=== PATIENT | male | born 1970 | race Caucasian/White ===

== ENCOUNTER 2019-08-17 12:51 | Inpatient (IN) | payer OTHER ==
--- NOTE | 2019-08-17 14:16 | BHS.RME ---
Substance Use & Tx History - Substance Use History Alcohol Substance amount: 1 liter Vodka Frequency of use: Daily Substance route: Oral Date of Last Use: 08/16/19 PCP Substance amount: 1 bag Frequency of use: Daily Substance route: Smoking Date of Last Use: 08/15/19 Physical/Psych/Mental Status - Behavior General Behavior: Increased activity (restlessness, agitation) Eye Contact: Normal - Cooperativeness Cooperativeness: Cooperative - Thinking Thought Processes: Tight Thought content: Future oriented - Physical Health Problems Is patient presently having any pain?: No (chronic neck pain) Does patient presently have any injuries (include location): No Does patient currently have a fever: No Is patient : No CIWA Nausea/Vomitin-No Nausea/No Vomiting Muscle Tremors: 3 Anxiety: 2 Agitation: 1-Slight > Activity Paroxysmal Sweats: No Perspiration Orientation: 3-Disoriented Date>2 days Tacttile Disturbances: 0-None Auditory Disturbances: 0-None Visual Disturbances: 0-None Headache: 3-Moderate CIWA-Ar Total Score: 12
--- NOTE | 2019-08-17 15:54 | HP ---
CIWA Score Nausea/Vomitin-No Nausea/No Vomiting Muscle Tremors: 3 Anxiety: 2 Agitation: 1-Slight > Activity Paroxysmal Sweats: No Perspiration Orientation: 3-Disoriented Date>2 days Tacttile Disturbances: 0-None Auditory Disturbances: 0-None Visual Disturbances: 0-None Headache: 3-Moderate CIWA-Ar Total Score: 12 - Admission Criteria OASAS Guidelines: Admission for Medically Managed Detox: Requires at least one of the followin. CIWA greater than 12 2. Seizures within the past 24 hours 3. Delirium tremens within the past 24 hours 4. Hallucinations within the past 24 hours 5. Acute intervention needed for co occurring medical disorder 6. Acute intervention needed for co occurring psychiatric disorder 7. Severe withdrawal that cannot be handled at a lower level of care (continued vomiting, continued diarrhea, abnormal vital signs) requiring intravenous medication and/or fluids 8. Admitting History and Physical - Admission Chief Complaint: "I want to be here because I started drinking so much and feel depressed and I tried to drown my emotions out." History of Present Illness: 49 year old male with history alcohol dependence with withdrawals, pcp use disorder, oral opioid use disorder. Alcohol: 1 liter of [place] or vodka daily, last used yesterday, started age 18 No history of seizures or blackout. 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 He qualifies for acute detox. History Source: Patient Limitations to Obtaining History: No Limitations - Past Medical History AS400 ANALYST: Yes: Other (Valdez's palsy) Musculoskeletal: Yes: Other (Varicose veins) - Past Surgical History Additional Past Surgical History: cervical disc surgery - Smoking History Smoking history: Current every day smoker Have you smoked in the past 12 months: Yes Aproximately how many cigarettes per day: 10 - Alcohol/Substance Use Hx Alcohol Use: Yes Date of Last Use: 08/16/19 - Social History Usual Living Arrangement: Yes: Alone Do you think of yourself as: Straight/Heterosexual ADL: Independent 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 History of Recent Travel: No Patient History - PPD History Previous Implant?: Yes Documented Results: Positive w/o proof Implanted On Prior [facility] Admission?: No Results: CXR 3 weeks ago PPD to be Administered?: No - Smoking Cessation Smoking history: Current every day smoker Have you smoked in the past 12 months: Yes Aproximately how many cigarettes per day: 10 Hx Chewing Tobacco Use: No Initiated information on smoking cessation: Yes 'Breaking Loose' booklet given: 08/17/19 - Substances abused Alcohol Substance route: Oral Frequency: Daily Amount used: 1 liter vodka or lul Age of first use: 18 Date of last use: 08/16/19 PCP Substance route: Smoking Frequency: Daily Amount used: 1 bag Age of first use: 30 Date of last use: 08/15/19 Other Other (specify): percocet Substance route: Oral Frequency: Daily Amount used: 10 mg Date of last use: 08/14/19 Admission Physical Exam BHS - Physical General Appearance: Yes: Moderate Distress, Irritable, Anxious HEENTM: Yes: EOMI, Hearing grossly Normal, Normal ENT Inspection, Normocephalic , Normal Voice, Other (residual weakness right side of face) Respiratory: Yes: Normal Breath Sounds, No Respiratory Distress, No Accessory Muscle Use Neck: Yes: No masses,lesions,Nodules, Supple Breast: Yes: Within Normal Limits Cardiology: Yes: Regular Rhythm, Regular Rate, S1, S2 Abdominal: Yes: Normal Bowel Sounds, Non Tender, Flat, Soft Genitourinary: Yes: Within Normal Limits Back: Yes: Normal Inspection Musculoskeletal: Yes: full range of Motion, Gait Steady, Pelvis Stable Extremities: Yes: Normal Capillary Refill, Normal Inspection, Normal Range of Motion, Non-Tender, Other (severe varicose veins bilaterally worse on left leg) Neurological: Yes: first mate II-XII NML intact, Fully Oriented, Alert, Motor Strength 5/5, Normal Mood/Affect, Normal Response Integumentary: Yes: Normal Color, Warm Lymphatic: Yes: Within Normal Limits - Diagnostic (1) Alcohol dependence with withdrawal Current Visit: Yes Status: Acute (2) TMJ (temporomandibular joint disorder) Current Visit: Yes Status: Acute (3) Valdez's palsy Current Visit: Yes Status: Acute (4) Varicose veins of bilateral lower extremities with pain Current Visit: Yes Status: Acute (5) Lumbar disc herniation Current Visit: Yes Status: Acute Cleared for Admission [facility] - Detox or Rehab [facility] Level of Care: Medically Managed Detox Regimen/Protocol: Librium Claeared for Rehab Admission: No Screened but not Admitted - Documentation of Visit Screened but not Admitted: No Inpatient Rehab Admission - Rehab Decision to Admit Inpatient rehab admission?: No
[2019-08-17] MEDS ORDERED: METHOCARBAMOL 500 MG TABLET PO PRN (16:05)
[2019-08-17] MEDS ORDERED: MENTHOL/PHENOL 1 EACH UD MM PRN (16:05)
[2019-08-17] MEDS ORDERED: chlordiazePOXIDE HCL 25 MG CAPSULE PO PRN (16:05)
[2019-08-17] MEDS ORDERED: MAG HYDROX/AL HYDROX/SIMETH 30 ML UNIT-DOSE CUP PO PRN (16:05)
[2019-08-17] MEDS ORDERED: IBUPROFEN 400 MG TABLET (FP) PO PRN (16:05)
[2019-08-17] MEDS ORDERED: ACETAMINOPHEN 325 MG TABLET (FP) PO PRN ×2 (16:05)
[2019-08-17] MEDS ORDERED: MAGNESIUM CITRATE 300 ML BOTTLE PO PRN (16:05)
[2019-08-17] MEDS ORDERED: hydrOXYzine PAMOATE 25 MG CAPSULE (FP) PO PRN (16:05)
[2019-08-17] MEDS ORDERED: BISMUTH SUBSALICYLATE 524 MG/30 ML UD PO PRN (16:05)
[2019-08-17] MEDS ORDERED: MAGNESIUM HYDROX 2400MG/30ML ORAL SUSPENSION 30 ML CUP PO PRN (16:05)
[2019-08-17 16:59] VITALS: BMI 28.5
[2019-08-17] MEDS: NICOTINE 14 MG/24 HOURS TOPICAL PATCH TD SCH (17:50)
[2019-08-17] MEDS: chlordiazePOXIDE HCL 25 MG CAPSULE PO SCH ×2 (17:54→22:15)
[2019-08-17] MEDS ORDERED: GABAPENTIN 100 MG CAPSULE PO ONE (18:30)
[2019-08-17] MEDS: CELECOXIB 200 MG CAPSULE PO SCH (21:03)
[2019-08-17] MEDS: THIAMINE HCL 100 MG TABLET (FP) PO SCH (22:15)
[2019-08-17] MEDS: MELATONIN 5 MG TABLETS PO PRN (22:16)
[2019-08-18] MEDS: chlordiazePOXIDE HCL 25 MG CAPSULE PO SCH ×4 (06:02→22:03)
[2019-08-18 09:48] LABS: HEMATOCRIT 43.1 % (35.4-49); HEMOGLOBIN 14.4 GM/dL (11.7-16.9); MCH 30.4 pg (25.7-33.7); MCHC 33.3 g/dl (32.0-35.9); MEAN CELL VOLUME 91.2 fl (80-96); MEAN PLT VOLUME 9.6 fl (7.5-11.1); PLATELET COUNT 259 K/MM3 (134-434); RBC 4.73 M/mm3 (4.00-5.60); RDW 14.5 % (11.9-15.9); WHITE BLOOD COUNT 3.4 K/mm3 (4.0-10.0)
[2019-08-18] MEDS: PRENATAL VITAMINS W/ FOLIC ACID TABLET (FP) PO SCH (10:05)
[2019-08-18] MEDS: CELECOXIB 200 MG CAPSULE PO SCH (10:05)
[2019-08-18] MEDS: NICOTINE 14 MG/24 HOURS TOPICAL PATCH TD SCH (10:06)
[2019-08-18 10:21] LABS: ALBUMIN 3.3 g/dl (3.4-5.0); BILIRUBIN,TOTAL 0.4 mg/dL (0.2-1); BLOOD UREA NITROGEN 9.7 mg/dL (7-18); CALCIUM 8.8 mg/dL (8.5-10.1); TOT PROT 5.9 g/dl (6.4-8.2)
--- NOTE | 2019-08-18 11:28 | PN ---
S CIWA - CIWA Score Nausea/Vomitin-No Nausea/No Vomiting Muscle Tremors: None Anxiety: 3 Agitation: 0-Normal Activity Paroxysmal Sweats: 3 Orientation: 0-Oriented Tacttile Disturbances: 0-None Auditory Disturbances: 0-None Visual Disturbances: 0-None Headache: 2-Mild CIWA-Ar Total Score: 8 BHS Progress Note (SOAP) Subjective: c/o anxiety, irritability, sweats, and headache. Objective: 08/18/19 11:27 Vital Signs 08/18/19 08/18/19 08/18/19 03:35 07:09 08:56 Temperature 97.5 F L 98.1 F Pulse Rate 61 74 Respiratory 16 16 18 Rate Blood Pressure 113/77 125/81 Laboratory Last Values WBC 3.4 K/mm3 (4.0-10.0) L 08/18/19 07:20 RBC 4.73 M/mm3 (4.00-5.60) 08/18/19 07:20 Hgb 14.4 GM/dL (11.7-16.9) 08/18/19 07:20 Hct 43.1 % (35.4-49) 08/18/19 07:20 MCV 91.2 fl (80-96) 08/18/19 07:20 MCH 30.4 pg (25.7-33.7) 08/18/19 07:20 MCHC 33.3 g/dl (32.0-35.9) 08/18/19 07:20 RDW 14.5 % (11.9-15.9) 08/18/19 07:20 Plt Count 259 K/MM3 (134-434) 08/18/19 07:20 MPV 9.6 fl (7.5-11.1) 08/18/19 07:20 Sodium 142 mmol/L (136-145) 08/18/19 07:20 Potassium 4.0 mmol/L (3.5-5.1) 08/18/19 07:20 Chloride 108 mmol/L (98-107) H 08/18/19 07:20 Carbon Dioxide 29 mmol/L (21-32) 08/18/19 07:20 Anion Gap 6 MMOL/L (8-16) L 08/18/19 07:20 BUN 9.7 mg/dL (7-18) 08/18/19 07:20 Creatinine 1.0 mg/dL (0.55-1.3) 08/18/19 07:20 Est GFR (CKD-EPI)AfAm 101.98 08/18/19 07:20 Est GFR (CKD-EPI)NonAf 87.99 08/18/19 07:20 Random Glucose 101 mg/dL (74-106) 08/18/19 07:20 Calcium 8.8 mg/dL (8.5-10.1) 08/18/19 07:20 Total Bilirubin 0.4 mg/dL (0.2-1) 08/18/19 07:20 AST 12 U/L (15-37) L 08/18/19 07:20 ALT 23 U/L (13-61) 08/18/19 07:20 Alkaline Phosphatase 53 U/L (45-117) 08/18/19 07:20 Total Protein 5.9 g/dl (6.4-8.2) L 08/18/19 07:20 Albumin 3.3 g/dl (3.4-5.0) L 08/18/19 07:20 RPR Titer Nonreactive (NONREACTIVE) 08/18/19 07:20 Labs noted. Assessment: 08/18/19 11:27 AOX3, in no respiratory distress. Full ROM, ambulating in the unit. Withdrawal symptoms. Plan: continue detox. Increase fluids.
--- NOTE | 2019-08-18 12:28 | CONSULT ---
[facility] Psychiatric Consult - Data Date of interview: 08/18/19 Admission source: [facility] Identifying data: First visit to [facility] and admission to [address] [place] [address] for this 49 y/o male self-referred for detoxification treatment. PARVIZ issues : alcohol, opiate (percocet), phencyclidine, cannabis, nicotine. Patient is , a father of one, homeless, unemployed and supported on welfare. Substance Abuse History: Discussed with patient. details in current [facility] report as follows : Smoking history: Current every day smoker. Have you smoked in the past 12 months: Yes. Aproximately how many cigarettes per day: 10. Hx Chewing Tobacco Use: No. Initiated information on smoking cessation: Yes. 'Breaking Loose' booklet given: 08/17/19. - Substances abused. Alcohol. Substance route: Oral. Frequency: Daily. Amount used: 1 liter vodka or lul. Age of first use: 18. Date of last use: 08/16/19. PCP. Substance route: Smoking. Frequency: Daily. Amount used: 1 bag. Age of first use: 30. Date of last use: 08/15/19. Other. Other (specify): percocet. Substance route: Oral. Frequency: Daily. Amount used: 10 mg. Date of last use: 08/14/19 Medical History: Medical profile is remarkable for Valdez's palsy (October 2018), temporomandibular joint disorder, varicose veins, disc herniation (lumbar spine ) and recent history of cervical spine fusion (May 2019). Psychiatric History: Patient denies history of psychiatric hospitalizations. Diagnosed with MDD. Mr Martinez reports no affiliation with psychiatric OPD care providers. He is prescribed gabapentin by a primary care provider for pain management. Patient denies history of suicide attempts.. Physical/Sexual Abuse/Trauma History: Patient denies. Additional Comment: Toxicology not available for review. Mental Status Exam - Mental Status Exam Alert and Oriented to: Time, Place, Person Cognitive Function: Good Patient Appearance: Well Groomed Mood: Nervous, Withdrawn Affect: Mood Congruent, Constricted Patient Behavior: Fatigued, Appropriate, Cooperative Speech Pattern: Clear Voice Loudness: Normal Thought Process: Intact, Goal Oriented Thought Disorder: Not Present Hallucinations: Denies Suicidal Ideation: Denies Homicidal Ideation: Denies Insight/Judgement: Poor Sleep: Poorly, Difficulty falling asleep Appetite: Good Gait/Station: Normal Psychiatric Findings - Problem List ([place] 1, 2,3) (1) Alcohol dependence with withdrawal Current Visit: Yes Status: Acute (2) Phencyclidine dependence Current Visit: Yes Status: Chronic (3) Nicotine dependence Current Visit: Yes Status: Chronic (4) Substance induced mood disorder Current Visit: Yes Status: Chronic (5) Insomnia Current Visit: Yes Status: Acute - Initial Treatment Plan Initial Treatment Plan: Psychoeducation. Sleep hygiene. Detoxification. Insomnia is addressed with melatonin at bedtime. Observation.
[2019-08-18] MEDS: THIAMINE HCL 100 MG TABLET (FP) PO SCH (22:03)
[2019-08-18] MEDS: MELATONIN 5 MG TABLETS PO PRN (22:05)
[2019-08-19] MEDS: chlordiazePOXIDE HCL 25 MG CAPSULE PO SCH ×4 (05:25→22:21)
[2019-08-19] MEDS: PRENATAL VITAMINS W/ FOLIC ACID TABLET (FP) PO SCH (10:11)
[2019-08-19] MEDS: CELECOXIB 200 MG CAPSULE PO SCH (10:11)
[2019-08-19] MEDS: NICOTINE 14 MG/24 HOURS TOPICAL PATCH TD SCH (10:11)
--- NOTE | 2019-08-19 14:00 | PN ---
S CIWA - CIWA Score Nausea/Vomitin-No Nausea/No Vomiting Muscle Tremors: 3 Anxiety: 0-No Anxiety, at Ease Agitation: 0-Normal Activity Paroxysmal Sweats: 1-Minimal Palms Moist Orientation: 0-Oriented Tacttile Disturbances: 0-None Auditory Disturbances: 0-None Visual Disturbances: 0-None Headache: 3-Moderate CIWA-Ar Total Score: 7 BHS Progress Note (SOAP) Subjective: 49 years old male admitted on 08/17/19 for alcohol withdrawal sx management treating with librium detox regiment reports trouble sleep at night belsomra 15 mg po x 1 hs states chronic back and neck pain treated with [employer] [facility] teaching on risks of addiction for opiate based pain medication patient agrees tylenal patient requests to be sen by a psychiatrist that long history of anxiety "some thing to calm me down" Objective: 08/19/19 14:03 Vital Signs Temperature 97.4 F L 08/19/19 10:00 Pulse Rate 71 08/19/19 10:00 Respiratory Rate 18 08/19/19 10:00 Blood Pressure 137/80 08/19/19 10:00 O2 Sat by Pulse Oximetry (%) Laboratory Last Values WBC 3.4 K/mm3 (4.0-10.0) L 08/18/19 07:20 RBC 4.73 M/mm3 (4.00-5.60) 08/18/19 07:20 Hgb 14.4 GM/dL (11.7-16.9) 08/18/19 07:20 Hct 43.1 % (35.4-49) 08/18/19 07:20 MCV 91.2 fl (80-96) 08/18/19 07:20 MCH 30.4 pg (25.7-33.7) 08/18/19 07:20 MCHC 33.3 g/dl (32.0-35.9) 08/18/19 07:20 RDW 14.5 % (11.9-15.9) 08/18/19 07:20 Plt Count 259 K/MM3 (134-434) 08/18/19 07:20 MPV 9.6 fl (7.5-11.1) 08/18/19 07:20 Sodium 142 mmol/L (136-145) 08/18/19 07:20 Potassium 4.0 mmol/L (3.5-5.1) 08/18/19 07:20 Chloride 108 mmol/L (98-107) H 08/18/19 07:20 Carbon Dioxide 29 mmol/L (21-32) 08/18/19 07:20 Anion Gap 6 MMOL/L (8-16) L 08/18/19 07:20 BUN 9.7 mg/dL (7-18) 08/18/19 07:20 Creatinine 1.0 mg/dL (0.55-1.3) 08/18/19 07:20 Est GFR (CKD-EPI)AfAm 101.98 08/18/19 07:20 Est GFR (CKD-EPI)NonAf 87.99 08/18/19 07:20 Random Glucose 101 mg/dL (74-106) 08/18/19 07:20 Calcium 8.8 mg/dL (8.5-10.1) 08/18/19 07:20 Total Bilirubin 0.4 mg/dL (0.2-1) 08/18/19 07:20 AST 12 U/L (15-37) L 08/18/19 07:20 ALT 23 U/L (13-61) 08/18/19 07:20 Alkaline Phosphatase 53 U/L (45-117) 08/18/19 07:20 Total Protein 5.9 g/dl (6.4-8.2) L 08/18/19 07:20 Albumin 3.3 g/dl (3.4-5.0) L 08/18/19 07:20 RPR Titer Nonreactive (NONREACTIVE) 08/18/19 07:20 lab noted Assessment: 08/19/19 14:03 alcohol withdrawal Plan: librium regiment
--- NOTE | 2019-08-19 15:20 | PN ---
Psychiatric Progress Note Vital Signs: Vital Signs Period Temp Pulse Resp BP Sys/Lovell Pulse Ox Last 24 Hr 97.4 F-98.1 F 70-74 18-19 118-137/75-88 Date of Session: 08/19/19 Chief Complaint:: "I have anxiety and difficulty sleeping." HPI: Patient admitted to for alcohol, opiate (percocet), phencyclidine, cannabis, and nicotine dependence. ROS: Patient in bed. Presents as mildly sedated, alert +oriented X3. Consultation ordered as patient reports anxiety +insomnia. Current Medications: Active Medications Generic Name Dose Route Start Last Admin Trade Name Freq PRN Reason Stop Dose Admin Acetaminophen 650 mg 08/17/19 16:05 Tylenol - PO Q6H PRN PAIN LEVEL 4 - 6 Acetaminophen 650 mg 08/17/19 16:05 08/19/19 11:10 Tylenol - PO 650 mg Q6H PRN Administration FEVER Al Hydroxide/Mg Hydroxide 30 ml 08/17/19 16:05 Mylanta Oral Suspension - PO Q6H PRN DYSPEPSIA Bismuth Subsalicylate 524 mg 08/17/19 16:05 Pepto-Bismol - PO Q1H PRN DIARRHEA Celecoxib 200 mg 08/17/19 19:00 08/19/19 10:11 Celebrex - PO 200 mg DAILY PA Administration Chlordiazepoxide HCl 10 mg 08/20/19 05:00 Librium - PO 08/20/19 23:01 E3U-CFH PA Chlordiazepoxide HCl 10 mg 08/21/19 05:00 Librium - PO 08/21/19 17:01 Q12H PA Chlordiazepoxide HCl 10 mg 08/20/19 00:00 Librium - PO 08/21/19 00:00 Q4H PRN WITHDRAWAL(CONT SUBST) Chlordiazepoxide HCl 10 mg 08/22/19 05:00 Librium - PO 08/22/19 05:01 ONCE@0500 ONE Chlordiazepoxide HCl 25 mg 08/19/19 05:00 08/19/19 10:11 Librium - PO 08/19/19 23:01 25 mg T1R-BIQ PA Administration Chlordiazepoxide HCl 25 mg 08/17/19 16:05 Librium - PO 08/19/19 23:59 Q4H PRN WITHDRAWAL(CONT SUBST) Eucalyptus/Menthol/Phenol/Sorbitol 1 each 08/17/19 16:05 Cepastat Lozenge - MM 08/23/19 16:05 Q4H PRN SORE THROAT Magnesium Citrate 300 ml 08/17/19 16:05 Citroma - PO Q48H PRN CONSTIPATION Magnesium Hydroxide 30 ml 08/17/19 16:05 Milk Of Magnesia - PO PRN PRN CONSTIPATION Melatonin 5 mg 08/17/19 16:05 08/18/19 22:05 Melatonin PO 5 mg HS PRN Administration INSOMNIA Methocarbamol 500 mg 08/17/19 16:05 Robaxin - PO 08/23/19 16:05 Q6H PRN MUSCLE SPASMS Nicotine 14 mg 08/17/19 18:00 08/19/19 10:11 Nicoderm Patch - TD Not Given DAILY PA Multivit/Folic Acid/Iron 1 tab 08/18/19 10:00 08/19/19 10:11 Vitamins ([facility]) - PO 1 tab DAILY PA Administration Suvorexant 15 mg 08/19/19 22:00 Belsomra PO 08/19/19 22:01 ONCE ONE Thiamine HCl 100 mg 08/17/19 22:00 08/18/19 22:03 Vitamin B1 - PO 100 mg HS PA Administration Medication(s) Change(s): Yes. Will order Belsomra 10mg HS PRN + Vistaril 50mg q4h for anxiety. Current Side Effect: No Lab tests ordered: No Lab tests reviewed: Yes Provider note:: Patient seen by Dr. Rosa. Dr. Rosa note read and appreciated. Patient reports and anxiety. Patient states that he is prescribed ambien, percocet, and gabapentin. Stated to food writer that he recently had a neck fusion procedure done and is prescribed gabapentin 800mg daily for pain management. Case discussed with APARNA Carter concerning ordering gabapentin for patient. For now, food writer will order vistaril 50mg q4h + belsomra 10mg HS PRN. Benefits and side effects discussed. Verbal consent given. Total face to face time:: 25 Mental Status Exam - Mental Status Exam Alert and Oriented to: Time, Place, Person Cognitive Function: Good Patient Appearance: Well Groomed Mood: Withdrawn Affect: Mood Congruent Patient Behavior: Fatigued, Cooperative Speech Pattern: Appropriate Voice Loudness: Mildly Soft/Quiet Thought Process: Goal Oriented Thought Disorder: Not Present Hallucinations: Denies Suicidal Ideation: Denies Homicidal Ideation: Denies Insight/Judgement: Poor Sleep: Poorly Appetite: Fair Muscle strength/Tone: Normal Gait/Station: Normal Psychiatric Treatment Plan - Problem List (1) Substance-induced sleep disorder Current Visit: Yes (2) Alcohol dependence with withdrawal Current Visit: Yes (3) Nicotine dependence Current Visit: Yes (4) Phencyclidine dependence Current Visit: Yes (5) Substance induced mood disorder Current Visit: Yes (6) Substance-induced anxiety disorder Current Visit: Yes
[2019-08-19] MEDS ORDERED: hydrOXYzine PAMOATE 50 MG CAPSULE (FP) PO PRN (15:21)
--- NOTE | 2019-08-19 15:52 | PN ---
[facility] Progress Note Note: patient will bring up his neurontine medication bottle senior copywriter will order neurontine as per medication label indicated
[2019-08-19] MEDS ORDERED: SUVOREXANT 15 MG TABLET PO ONE (22:00)
[2019-08-19] MEDS ORDERED: SUVOREXANT 15 MG TABLET PO PRN (22:00)
[2019-08-19] MEDS: THIAMINE HCL 100 MG TABLET (FP) PO SCH (22:21)
[2019-08-19] MEDS: MELATONIN 5 MG TABLETS PO PRN (22:21)
[2019-08-20] MEDS ORDERED: chlordiazePOXIDE HCL 10 MG CAPSULE PO PRN
[2019-08-20] MEDS: chlordiazePOXIDE HCL 10 MG CAPSULE PO SCH ×4 (06:00→22:06)
[2019-08-20] MEDS: CELECOXIB 200 MG CAPSULE PO SCH (10:16)
[2019-08-20] MEDS: PRENATAL VITAMINS W/ FOLIC ACID TABLET (FP) PO SCH (10:16)
[2019-08-20] MEDS: NICOTINE 14 MG/24 HOURS TOPICAL PATCH TD SCH (10:16)
--- NOTE | 2019-08-20 10:27 | PN ---
[facility] CIWA - CIWA Score Nausea/Vomitin-No Nausea/No Vomiting Muscle Tremors: 1-None Visible, but [place] Anxiety: 2 Agitation: 1-Slight > Activity Paroxysmal Sweats: 1-Minimal Palms Moist Orientation: 0-Oriented Tacttile Disturbances: 0-None Auditory Disturbances: 0-None Visual Disturbances: 0-None Headache: 0-None Present CIWA-Ar Total Score: 5 S Progress Note (SOAP) Subjective: 49 years old male admitted on for alcohol withdrawal sx management treating with librium detox regiment feeling ok today ate breakfast and showered requests celebrax to be taken around 6 am in the morning reschedule celebrax at 6 am service writer advisor call preferred pharmacy at [phone] verified gabapentin 800mg po daily x 6 months last filled 07/20/19 resume gabapentin 800mg po daily Objective: 08/20/19 10:32 Vital Signs Temperature 97.9 F 08/20/19 08:46 Pulse Rate 72 08/20/19 08:46 Respiratory Rate 17 08/20/19 08:46 Blood Pressure 124/85 08/20/19 08:46 O2 Sat by Pulse Oximetry (%) Laboratory Last Values WBC 3.4 K/mm3 (4.0-10.0) L 08/18/19 07:20 RBC 4.73 M/mm3 (4.00-5.60) 08/18/19 07:20 Hgb 14.4 GM/dL (11.7-16.9) 08/18/19 07:20 Hct 43.1 % (35.4-49) 08/18/19 07:20 MCV 91.2 fl (80-96) 08/18/19 07:20 MCH 30.4 pg (25.7-33.7) 08/18/19 07:20 MCHC 33.3 g/dl (32.0-35.9) 08/18/19 07:20 RDW 14.5 % (11.9-15.9) 08/18/19 07:20 Plt Count 259 K/MM3 (134-434) 08/18/19 07:20 MPV 9.6 fl (7.5-11.1) 08/18/19 07:20 Sodium 142 mmol/L (136-145) 08/18/19 07:20 Potassium 4.0 mmol/L (3.5-5.1) 08/18/19 07:20 Chloride 108 mmol/L (98-107) H 08/18/19 07:20 Carbon Dioxide 29 mmol/L (21-32) 08/18/19 07:20 Anion Gap 6 MMOL/L (8-16) L 08/18/19 07:20 BUN 9.7 mg/dL (7-18) 08/18/19 07:20 Creatinine 1.0 mg/dL (0.55-1.3) 08/18/19 07:20 Est GFR (CKD-EPI)AfAm 101.98 08/18/19 07:20 Est GFR (CKD-EPI)NonAf 87.99 08/18/19 07:20 Random Glucose 101 mg/dL (74-106) 08/18/19 07:20 Calcium 8.8 mg/dL (8.5-10.1) 08/18/19 07:20 Total Bilirubin 0.4 mg/dL (0.2-1) 08/18/19 07:20 AST 12 U/L (15-37) L 08/18/19 07:20 ALT 23 U/L (13-61) 08/18/19 07:20 Alkaline Phosphatase 53 U/L (45-117) 08/18/19 07:20 Total Protein 5.9 g/dl (6.4-8.2) L 08/18/19 07:20 Albumin 3.3 g/dl (3.4-5.0) L 08/18/19 07:20 RPR Titer Nonreactive (NONREACTIVE) 08/18/19 07:20 lab noted Assessment: 08/20/19 10:33 alcohol withdrawal Plan: librium regiment
[2019-08-20] MEDS: GABAPENTIN 400 MG CAPSULE PO SCH (11:48)
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
[2019-08-20] MEDS: THIAMINE HCL 100 MG TABLET (FP) PO SCH (22:06)
[2019-08-20] MEDS: P-EPHED 60MG/TRIPROLIDI 2.5MG TABLET PO SCH (22:07)
[2019-08-20] MEDS: MELATONIN 5 MG TABLETS PO PRN (22:11)
[2019-08-21] MEDS: chlordiazePOXIDE HCL 10 MG CAPSULE PO SCH ×2 (05:40→17:57)
[2019-08-21] MEDS: CELECOXIB 200 MG CAPSULE PO SCH ×2 (05:42→10:09)
[2019-08-21] MEDS: P-EPHED 60MG/TRIPROLIDI 2.5MG TABLET PO SCH ×3 (05:46→22:15)
[2019-08-21] MEDS: ARTIFICIAL TEARS (POLYVINYL ALCOHOL) OPTH DROPS OD PRN ×3 (09:03→22:20)
[2019-08-21] MEDS: NICOTINE 14 MG/24 HOURS TOPICAL PATCH TD SCH (10:08)
[2019-08-21] MEDS: GABAPENTIN 400 MG CAPSULE PO SCH (10:09)
[2019-08-21] MEDS: PRENATAL VITAMINS W/ FOLIC ACID TABLET (FP) PO SCH (10:10)
--- NOTE | 2019-08-21 11:08 | PN ---
S CIWA - CIWA Score Nausea/Vomitin-No Nausea/No Vomiting Muscle Tremors: 1-None Visible, but [place] Anxiety: 1-Mildly Anxious Agitation: 0-Normal Activity Paroxysmal Sweats: 1-Minimal Palms Moist Orientation: 0-Oriented Tacttile Disturbances: 0-None Auditory Disturbances: 0-None Visual Disturbances: 1-Very Mild Sensitivity Headache: 0-None Present CIWA-Ar Total Score: 4 BHS Progress Note (SOAP) Subjective: 49 years old male admitted on 08/17/19 for alcohol withdrawal sx management treating with librium detox regiment Mr Martinez reports that Valdez palsy x 1 year flared every 3-4 weeks patient will return to primary care provider for follow up Objective: 08/21/19 11:06 Vital Signs Temperature 97.1 F L 08/21/19 08:36 Pulse Rate 80 08/21/19 08:36 Respiratory Rate 18 08/21/19 08:36 Blood Pressure 127/83 08/21/19 08:36 O2 Sat by Pulse Oximetry (%) Laboratory Last Values WBC 3.4 K/mm3 (4.0-10.0) L 08/18/19 07:20 RBC 4.73 M/mm3 (4.00-5.60) 08/18/19 07:20 Hgb 14.4 GM/dL (11.7-16.9) 08/18/19 07:20 Hct 43.1 % (35.4-49) 08/18/19 07:20 MCV 91.2 fl (80-96) 08/18/19 07:20 MCH 30.4 pg (25.7-33.7) 08/18/19 07:20 MCHC 33.3 g/dl (32.0-35.9) 08/18/19 07:20 RDW 14.5 % (11.9-15.9) 08/18/19 07:20 Plt Count 259 K/MM3 (134-434) 08/18/19 07:20 MPV 9.6 fl (7.5-11.1) 08/18/19 07:20 Sodium 142 mmol/L (136-145) 08/18/19 07:20 Potassium 4.0 mmol/L (3.5-5.1) 08/18/19 07:20 Chloride 108 mmol/L (98-107) H 08/18/19 07:20 Carbon Dioxide 29 mmol/L (21-32) 08/18/19 07:20 Anion Gap 6 MMOL/L (8-16) L 08/18/19 07:20 BUN 9.7 mg/dL (7-18) 08/18/19 07:20 Creatinine 1.0 mg/dL (0.55-1.3) 08/18/19 07:20 Est GFR (CKD-EPI)AfAm 101.98 08/18/19 07:20 Est GFR (CKD-EPI)NonAf 87.99 08/18/19 07:20 Random Glucose 101 mg/dL (74-106) 08/18/19 07:20 Calcium 8.8 mg/dL (8.5-10.1) 08/18/19 07:20 Total Bilirubin 0.4 mg/dL (0.2-1) 08/18/19 07:20 AST 12 U/L (15-37) L 08/18/19 07:20 ALT 23 U/L (13-61) 08/18/19 07:20 Alkaline Phosphatase 53 U/L (45-117) 08/18/19 07:20 Total Protein 5.9 g/dl (6.4-8.2) L 08/18/19 07:20 Albumin 3.3 g/dl (3.4-5.0) L 08/18/19 07:20 RPR Titer Nonreactive (NONREACTIVE) 08/18/19 07:20 lab noted Assessment: 08/21/19 11:07 alcohol withdrawal Plan: librium regiment
[2019-08-21] MEDS: MELATONIN 5 MG TABLETS PO PRN (22:15)
[2019-08-21] MEDS: THIAMINE HCL 100 MG TABLET (FP) PO SCH (22:15)
[2019-08-21] MEDS ORDERED: SUVOREXANT 5 MG TABLET PO PRN (22:16)
[2019-08-22] MEDS ORDERED: chlordiazePOXIDE HCL 10 MG CAPSULE PO ONE (05:00)
[2019-08-22] MEDS: P-EPHED 60MG/TRIPROLIDI 2.5MG TABLET PO SCH (05:48)
[2019-08-22 09:02] VITALS: BP 127/92; PULSE 110; TEMP 98.2
--- NOTE | 2019-08-22 10:34 | DS ---
[facility] Detox Discharge Summary Admission Date: 08/17/19 Discharge Date: 08/22/19 - History Present History: Alcohol Dependence Additional Comments: 49 years old male admitted on 08/17/19 for alcohol withdrawal sx management treated with librium detox regiment Mr Martinez has completed librium regiment and tolerated well seen by psychiatrist no medical intervention alert oriented x 3 respiratory clear lungs bilaterally on auscultation abdomen soft on rebound tenderness extremities full range of motion Pertinent Past History: time for discharge 34 minutes Mr Martinez prefers to visit his pain management for Valdez Palsy provider before [facility] admission encourage the patient to contact marketing communications coordinator for detail regarding the admission to [facility] - Physical Exam Results Vital Signs: Vital Signs Temperature 98.2 F 08/22/19 08:52 Pulse Rate 110 H 08/22/19 08:52 Respiratory Rate 18 08/22/19 08:52 Blood Pressure 127/92 08/22/19 08:52 O2 Sat by Pulse Oximetry (%) Pertinent Admission Physical Exam Findings: alcohol withdrawal Vital Signs Temperature 98.2 F 08/22/19 08:52 Pulse Rate 110 H 08/22/19 08:52 Respiratory Rate 18 08/22/19 08:52 Blood Pressure 127/92 08/22/19 08:52 O2 Sat by Pulse Oximetry (%) Laboratory Last Values WBC 3.4 K/mm3 (4.0-10.0) L 08/18/19 07:20 RBC 4.73 M/mm3 (4.00-5.60) 08/18/19 07:20 Hgb 14.4 GM/dL (11.7-16.9) 08/18/19 07:20 Hct 43.1 % (35.4-49) 08/18/19 07:20 MCV 91.2 fl (80-96) 08/18/19 07:20 MCH 30.4 pg (25.7-33.7) 08/18/19 07:20 MCHC 33.3 g/dl (32.0-35.9) 08/18/19 07:20 RDW 14.5 % (11.9-15.9) 08/18/19 07:20 Plt Count 259 K/MM3 (134-434) 08/18/19 07:20 MPV 9.6 fl (7.5-11.1) 08/18/19 07:20 Sodium 142 mmol/L (136-145) 08/18/19 07:20 Potassium 4.0 mmol/L (3.5-5.1) 08/18/19 07:20 Chloride 108 mmol/L (98-107) H 08/18/19 07:20 Carbon Dioxide 29 mmol/L (21-32) 08/18/19 07:20 Anion Gap 6 MMOL/L (8-16) L 08/18/19 07:20 BUN 9.7 mg/dL (7-18) 08/18/19 07:20 Creatinine 1.0 mg/dL (0.55-1.3) 08/18/19 07:20 Est GFR (CKD-EPI)AfAm 101.98 08/18/19 07:20 Est GFR (CKD-EPI)NonAf 87.99 08/18/19 07:20 Random Glucose 101 mg/dL (74-106) 08/18/19 07:20 Calcium 8.8 mg/dL (8.5-10.1) 08/18/19 07:20 Total Bilirubin 0.4 mg/dL (0.2-1) 08/18/19 07:20 AST 12 U/L (15-37) L 08/18/19 07:20 ALT 23 U/L (13-61) 08/18/19 07:20 Alkaline Phosphatase 53 U/L (45-117) 08/18/19 07:20 Total Protein 5.9 g/dl (6.4-8.2) L 08/18/19 07:20 Albumin 3.3 g/dl (3.4-5.0) L 08/18/19 07:20 RPR Titer Nonreactive (NONREACTIVE) 08/18/19 07:20 lab noted patient is anxious about pain management appointment in time - Treatment Hospital Course: Detox Protocol Followed, Detoxed Safely, Responded well, Discharged Condition Good, Rehab Referral Accepted Patient has Accepted a [facility] Referral [facility] - Medication Discharge Medications: Ambulatory Orders Celecoxib 200 mg PO DAILY 08/17/19 Diclofenac Sodium 75 mg PO BID PRN 08/17/19 Gabapentin [Neurontin] 800 mg PO DAILY 08/17/19 - Diagnosis (1) Alcohol dependence with withdrawal Status: Acute Qualifiers: Complication of substance-induced condition: uncomplicated Qualified Code(s ): F10.230 - Alcohol dependence with withdrawal, uncomplicated (2) Valdez's palsy Status: Chronic (3) Nicotine dependence Status: Acute Qualifiers: Nicotine product type: cigarettes Substance use status: in withdrawal Qualified Code(s): F17.213 - Nicotine dependence, cigarettes, with withdrawal (4) Substance induced mood disorder Status: Suspected - AMA Did Patient Leave Against Medical Advice: No CIWA Score - CIWA Score Nausea/Vomitin-No Nausea/No Vomiting Muscle Tremors: 1-None Visible, but [place] Anxiety: 1-Mildly Anxious Agitation: 0-Normal Activity Paroxysmal Sweats: No Perspiration Orientation: 0-Oriented Tacttile Disturbances: 0-None Auditory Disturbances: 0-None Visual Disturbances: 0-None Headache: 0-None Present CIWA-Ar Total Score: 2
== END 2019-08-22 08:58 | disposition home or self-care (01) | DRG 773 ==
LOC: YASAS 12:51 → Y3N 17:21
PROVIDERS: ADMIT Allergy & Immunology; ATTEND Allergy & Immunology
PROC: HZ2ZZZZ Detoxification Services for Substance Abuse Treatment (ICD-10-PCS; principal; 2019-08-17)
DX: F10.230 Alcohol dependence with withdrawal, uncomplicated (principal); F11.20 Opioid dependence, uncomplicated; F16.20 Hallucinogen dependence, uncomplicated; F12.20 Cannabis dependence, uncomplicated; F17.210 Nicotine dependence, cigarettes, uncomplicated; F19.282 Other psychoactive substance dependence with psychoactive substance-induced sleep disorder; F19.280 Other psychoactive substance dependence with psychoactive substance-induced anxiety disorder; F19.24 Other psychoactive substance dependence with psychoactive substance-induced mood disorder; I83.813 Varicose veins of bilateral lower extremities with pain; G51.0 Bell's palsy; M26.629 Arthralgia of temporomandibular joint, unspecified side; Z98.1 Arthrodesis status; Z56.0 Unemployment, unspecified; Z59.0 Homelessness
CPT/HCPCS: 36415; 80053; 85027; 86593

== ENCOUNTER 2019-08-22 12:16 | Inpatient (IN) | payer OTHER ==
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
[2019-08-22] MEDS ORDERED: guaiFENesin 200 MG/10 ML 10 ML UNIT-DOSE CUPS PO PRN (13:58)
[2019-08-22] MEDS ORDERED: MAGNESIUM CITRATE 300 ML BOTTLE PO PRN (13:58)
[2019-08-22] MEDS ORDERED: MAGNESIUM HYDROX 2400MG/30ML ORAL SUSPENSION 30 ML CUP PO PRN (13:58)
[2019-08-22] MEDS ORDERED: LOPERAMIDE HCL 2 MG CAPSULE PO PRN (13:58)
[2019-08-22] MEDS ORDERED: IBUPROFEN 400 MG TABLET (FP) PO PRN (13:58)
[2019-08-22] MEDS ORDERED: MAG HYDROX/AL HYDROX/SIMETH 30 ML UNIT-DOSE CUP PO PRN (13:58)
[2019-08-22] MEDS ORDERED: NICOTINE POLACRILEX 2 MG GUM BUC PRN (13:58)
[2019-08-22] MEDS ORDERED: ACETAMINOPHEN 325 MG TABLET (FP) PO PRN (13:58)
[2019-08-22 15:12] VITALS: BMI 30.3
[2019-08-22] MEDS: hydrOXYzine PAMOATE 25 MG CAPSULE (FP) PO SCH ×3 (16:58→21:06)
[2019-08-22] MEDS: THIAMINE HCL 100 MG TABLET (FP) PO SCH (21:06)
[2019-08-22] MEDS: MELATONIN 5 MG TABLETS PO SCH (21:07)
[2019-08-23] MEDS: hydrOXYzine PAMOATE 25 MG CAPSULE (FP) PO SCH ×5 (07:24→21:02)
[2019-08-23] MEDS: NICOTINE 7 MG/24 HOURS TOPICAL PATCH TD SCH (10:07)
[2019-08-23] MEDS: PRENATAL VITAMINS W/ FOLIC ACID TABLET (FP) PO SCH (10:08)
--- NOTE | 2019-08-23 11:35 | PN ---
[facility] Progress Note Note: Pt is a 49 y/o male with a hx of PARVIZ-alcohol,pcp,marijuana,("on percocets due to sx") admitted to rehab on 08/22/19 through [facility] . Pt completed detox on on 08/22/19 went home due to family issues(per patient's verbal account) and returned to [facility] for rehab admission same day. PMHx:Valdez's Palsy(10/2018), Varicose Veins/ Vein stripping left LE 5 months ago; Lumber Disc Herniation,TMJ,Keloid of right shoulder; PSHx: Cervical Disc Sx; Psych Hx: Depression/Anxiety/Insomnia. Pt reports he has a primary care provider Uriel Beebe on [address]/[place], [place] ; Pain Management with [facility] on [address] [place], [place]. Surgeon, Dr. Recinos(other parts of name pt unable to say). Vital Signs - 24 hr 08/22/19 08/22/19 08/23/19 15:10 15:55 00:30 Temperature 97.2 F L 97.7 F Pulse Rate 97 H 92 H Respiratory 18 20 20 Rate Blood Pressure 150/82 102/77 08/23/19 07:08 Temperature 97.1 F L Pulse Rate 79 Respiratory 20 Rate Blood Pressure 103/73 Alert o x 3,denies s/h/i nad oob ambulating with steady gait extremities/skin:no edema;skin intact; protruding keloid on right shoulder-no pain or redness. A/P PARVIZ new rehab pt s/p detox Maintain safety Reviewed Home meds and reordered(pt wants to use own meds) increase po fluids.
[2019-08-23] MEDS ORDERED: PNEUMOC 13-VAL CONJ-DIP CRM/PF 0.5 ML DISP.SYRIN IM ONE (12:00)
[2019-08-23] MEDS ORDERED: PNEUMOCOCCAL 23 VACCINE 0.5 ML VIAL IM ONE (12:00)
[2019-08-23] MEDS ORDERED: DICLOFENAC SODIUM 75 MG PO PRN (13:33)
[2019-08-23] MEDS: PATIENT'S OWN MEDICATION (NON-FORMULARY) (Gabapentin [Neurontin] 800 MG) PO SCH (14:23)
[2019-08-23] MEDS: ARTIFICIAL TEARS (POLYVINYL ALCOHOL) OPTH DROPS OU PRN ×2 (14:24→21:04)
[2019-08-23] MEDS: P-EPHED 60MG/TRIPROLIDI 2.5MG TABLET PO PRN (14:45)
[2019-08-23] MEDS: THIAMINE HCL 100 MG TABLET (FP) PO SCH (21:02)
[2019-08-23] MEDS: MELATONIN 5 MG TABLETS PO SCH (21:02)
[2019-08-24] MEDS: P-EPHED 60MG/TRIPROLIDI 2.5MG TABLET PO PRN (01:37)
[2019-08-24] MEDS: hydrOXYzine PAMOATE 25 MG CAPSULE (FP) PO SCH ×3 (06:46→13:21)
[2019-08-24 06:56] VITALS: BP 117/69; PULSE 81; TEMP 97.7
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
[2019-08-24] MEDS ORDERED: CELECOXIB 200 MG CAPSULE PO SCH (10:00)
[2019-08-24] MEDS: PRENATAL VITAMINS W/ FOLIC ACID TABLET (FP) PO SCH (10:17)
[2019-08-24] MEDS: ARTIFICIAL TEARS (POLYVINYL ALCOHOL) OPTH DROPS OU PRN (10:18)
[2019-08-24] MEDS: NICOTINE 7 MG/24 HOURS TOPICAL PATCH TD SCH (10:18)
[2019-08-24] MEDS: PATIENT'S OWN MEDICATION (NON-FORMULARY) (Gabapentin [Neurontin] 800 MG) PO SCH (10:20)
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
[2019-08-24] MEDS ORDERED: SUVOREXANT 10 MG TABLET PO PRN (22:00)
== END 2019-08-24 14:20 | disposition home or self-care (01) | DRG 772 ==
LOC: YASAS 12:16 → Y5N 15:06
PROVIDERS: ADMIT Allergy & Immunology; ATTEND Allergy & Immunology
PROC: HZ42ZZZ Group Counseling for Substance Abuse Treatment, Cognitive-Behavioral (ICD-10-PCS; principal; 2019-08-22)
DX: F10.20 Alcohol dependence, uncomplicated (principal); F11.20 Opioid dependence, uncomplicated; F16.20 Hallucinogen dependence, uncomplicated; F12.20 Cannabis dependence, uncomplicated; F17.210 Nicotine dependence, cigarettes, uncomplicated; F19.282 Other psychoactive substance dependence with psychoactive substance-induced sleep disorder; F19.24 Other psychoactive substance dependence with psychoactive substance-induced mood disorder; F32.9 Major depressive disorder, single episode, unspecified; F41.8 Other specified anxiety disorders; I83.813 Varicose veins of bilateral lower extremities with pain; M26.69 Other specified disorders of temporomandibular joint; M51.26 Other intervertebral disc displacement, lumbar region; L91.0 Hypertrophic scar; Z86.69 Personal history of other diseases of the nervous system and sense organs; Z98.890 Other specified postprocedural states; Z98.1 Arthrodesis status

== ENCOUNTER 2021-02-25 10:12 | Inpatient (IN) | payer OTHER ==
[2021-02-25 10:44] VITALS: BMI 28.5
[2021-02-25] MEDS ORDERED: MAGNESIUM HYDROX 2400MG/30ML ORAL SUSPENSION 30 ML CUP PO PRN (11:37)
[2021-02-25] MEDS ORDERED: NICOTINE 10 MG CARTRIDGE (INHALER) IH PRN (11:37)
[2021-02-25] MEDS ORDERED: ACETAMINOPHEN 325 MG TABLET (FP) PO PRN ×2 (11:37)
[2021-02-25] MEDS ORDERED: IBUPROFEN 400 MG TABLET (FP) PO PRN (11:37)
[2021-02-25] MEDS ORDERED: MAGNESIUM CITRATE 300 ML BOTTLE PO PRN (11:37)
[2021-02-25] MEDS ORDERED: MAG HYDROX/AL HYDROX/SIMETH 30 ML UNIT-DOSE CUP PO PRN (11:37)
[2021-02-25] MEDS ORDERED: BISMUTH SUBSALICYLATE 524 MG/30 ML PO PRN (11:37)
[2021-02-25] MEDS ORDERED: ONDANSETRON *ODT* 4 MG TABLET SL PRN (11:37)
[2021-02-25] MEDS ORDERED: MENTHOL/PHENOL 1 EACH UD MM PRN (11:37)
[2021-02-25] MEDS: diazePAM 5 MG TABLET PO PRN (13:48)
[2021-02-25] MEDS: diazePAM 5 MG TABLET PO SCH ×3 (13:48→22:08)
[2021-02-25] MEDS: NICOTINE 14 MG/24 HOURS TOPICAL PATCH TD SCH (13:49)
[2021-02-25] MEDS: PRENATAL VITAMINS W/ FOLIC ACID TABLET (FP) PO SCH (13:49)
[2021-02-25] MEDS: METHOCARBAMOL 500 MG TABLET PO PRN ×2 (13:50→22:11)
[2021-02-25] MEDS: hydrOXYzine PAMOATE 25 MG CAPSULE (FP) PO SCH ×3 (13:50→22:08)
[2021-02-25 15:12] LABS: HEMATOCRIT 47.2 % (35.4-49); MCH 30.8 pg (25.7-33.7); MCHC 33.8 g/dl (32.0-35.9); MEAN CELL VOLUME 91.2 fl (80-96); PLATELET COUNT 268 10^3/uL (134-434); RBC 5.18 M/mm3 (4.00-5.60); RDW 14.3 % (11.9-15.9); WHITE BLOOD COUNT 4.2 K/mm3 (4.0-10.0)
[2021-02-25 15:23] LABS: CALCIUM 8.6 mg/dL (8.5-10.1)
[2021-02-25 15:24] LABS: ALBUMIN 3.4 g/dl (3.4-5.0); BLOOD UREA NITROGEN 23.6 mg/dL (7-18)
[2021-02-25 15:27] LABS: CREATININE 1.5 mg/dL (0.55-1.3)
[2021-02-25 15:28] LABS: BILIRUBIN,TOTAL 0.3 mg/dL (0.2-1)
[2021-02-25 15:29] LABS: TOT PROT 6.6 g/dl (6.4-8.2)
[2021-02-25] MEDS: THIAMINE HCL 100 MG TABLET (FP) PO SCH (22:08)
[2021-02-25] MEDS: MELATONIN 5 MG TABLETS PO SCH (22:09)
[2021-02-26] MEDS: diazePAM 5 MG TABLET PO SCH ×4 (05:40→22:09)
[2021-02-26] MEDS: hydrOXYzine PAMOATE 25 MG CAPSULE (FP) PO SCH ×5 (05:40→22:10)
[2021-02-26] MEDS: METHOCARBAMOL 500 MG TABLET PO PRN ×2 (05:54→17:45)
[2021-02-26] MEDS ORDERED: CELECOXIB 100 MG CAPSULE PO SCH (10:00)
[2021-02-26] MEDS: NICOTINE 14 MG/24 HOURS TOPICAL PATCH TD SCH (10:25)
[2021-02-26] MEDS: PRENATAL VITAMINS W/ FOLIC ACID TABLET (FP) PO SCH (10:26)
[2021-02-26] MEDS ORDERED: DICLOFENAC SODIUM 25 MG TABLET.DR PO ONE (13:30)
[2021-02-26] MEDS: GABAPENTIN 400 MG CAPSULE PO SCH (13:49)
[2021-02-26] MEDS: DICLOFENAC SODIUM 75 MG TABLET.DR PO SCH (22:09)
[2021-02-26] MEDS: MELATONIN 5 MG TABLETS PO SCH (22:10)
[2021-02-26] MEDS: THIAMINE HCL 100 MG TABLET (FP) PO SCH (22:10)
[2021-02-26] MEDS: SUVOREXANT 10 MG TABLET PO PRN (23:11)
[2021-02-27] MEDS: hydrOXYzine PAMOATE 25 MG CAPSULE (FP) PO SCH ×5 (05:32→21:27)
[2021-02-27] MEDS: diazePAM 5 MG TABLET PO SCH ×3 (05:32→21:27)
[2021-02-27] MEDS: NICOTINE 14 MG/24 HOURS TOPICAL PATCH TD SCH (10:19)
[2021-02-27] MEDS: GABAPENTIN 400 MG CAPSULE PO SCH (10:19)
[2021-02-27] MEDS: diazePAM 5 MG TABLET PO PRN (10:19)
[2021-02-27] MEDS: PRENATAL VITAMINS W/ FOLIC ACID TABLET (FP) PO SCH (10:19)
[2021-02-27] MEDS: DICLOFENAC SODIUM 75 MG TABLET.DR PO SCH ×2 (10:20→21:30)
[2021-02-27 11:28] LABS: BLOOD UREA NITROGEN 11.6 mg/dL (7-18)
[2021-02-27] MEDS: METHOCARBAMOL 500 MG TABLET PO PRN (12:45)
[2021-02-27] MEDS: SUVOREXANT 10 MG TABLET PO PRN (21:26)
[2021-02-27] MEDS: MELATONIN 5 MG TABLETS PO SCH (21:27)
[2021-02-27] MEDS: THIAMINE HCL 100 MG TABLET (FP) PO SCH (21:27)
[2021-02-28] MEDS: diazePAM 5 MG TABLET PO SCH ×2 (07:12→17:52)
[2021-02-28] MEDS: hydrOXYzine PAMOATE 25 MG CAPSULE (FP) PO SCH ×5 (07:12→21:36)
[2021-02-28] MEDS: METHOCARBAMOL 500 MG TABLET PO PRN ×2 (07:13→17:54)
[2021-02-28] MEDS: PRENATAL VITAMINS W/ FOLIC ACID TABLET (FP) PO SCH (10:38)
[2021-02-28] MEDS: LIDOCAINE 5% TOPICAL PATCH TP SCH (10:38)
[2021-02-28] MEDS: NICOTINE 14 MG/24 HOURS TOPICAL PATCH TD SCH (10:38)
[2021-02-28] MEDS: GABAPENTIN 400 MG CAPSULE PO SCH (10:38)
[2021-02-28] MEDS: DICLOFENAC SODIUM 75 MG TABLET.DR PO SCH ×2 (10:39→21:35)
[2021-02-28] MEDS: diazePAM 5 MG TABLET PO PRN (10:40)
[2021-02-28] MEDS: THIAMINE HCL 100 MG TABLET (FP) PO SCH (21:35)
[2021-02-28] MEDS: MELATONIN 5 MG TABLETS PO SCH (21:36)
[2021-02-28] MEDS: SUVOREXANT 10 MG TABLET PO PRN (21:37)
[2021-02-28] MEDS ORDERED: LIDOCAINE PATCH REMOVAL MC SCH (22:00)
[2021-03-01] MEDS: hydrOXYzine PAMOATE 25 MG CAPSULE (FP) PO SCH ×2 (05:40→10:00)
[2021-03-01] MEDS ORDERED: diazePAM 5 MG TABLET PO ONE (06:00)
[2021-03-01 09:49] VITALS: BP 132/92; PULSE 89; TEMP 97.1
[2021-03-01] MEDS: DICLOFENAC SODIUM 75 MG TABLET.DR PO SCH (10:00)
[2021-03-01] MEDS: NICOTINE 14 MG/24 HOURS TOPICAL PATCH TD SCH (10:00)
[2021-03-01] MEDS: GABAPENTIN 400 MG CAPSULE PO SCH (10:00)
[2021-03-01] MEDS: PRENATAL VITAMINS W/ FOLIC ACID TABLET (FP) PO SCH (10:00)
[2021-03-01] MEDS: LIDOCAINE 5% TOPICAL PATCH TP SCH (10:00)
== END 2021-03-01 10:15 | disposition other institution (70) | DRG 773 ==
LOC: YASAS 10:12 → Y3N 12:03
PROVIDERS: ADMIT Allergy & Immunology; ATTEND Allergy & Immunology
PROC: HZ2ZZZZ Detoxification Services for Substance Abuse Treatment (ICD-10-PCS; principal; 2021-02-25)
DX: F10.230 Alcohol dependence with withdrawal, uncomplicated (principal); F11.20 Opioid dependence, uncomplicated; F16.20 Hallucinogen dependence, uncomplicated; F14.10 Cocaine abuse, uncomplicated; F12.20 Cannabis dependence, uncomplicated; F17.210 Nicotine dependence, cigarettes, uncomplicated; F19.24 Other psychoactive substance dependence with psychoactive substance-induced mood disorder; F41.9 Anxiety disorder, unspecified; F32.9 Major depressive disorder, single episode, unspecified; M54.5 Low back pain; G89.29 Other chronic pain; Z86.69 Personal history of other diseases of the nervous system and sense organs; Z56.0 Unemployment, unspecified; Z59.0 Homelessness
CPT/HCPCS: 36415; 80053; 82565; 84520; 85027; 86780; C9803; U0003; U0005

== ENCOUNTER 2021-08-02 14:07 | Inpatient (IN) | payer OTHER ==
[2021-08-02] MEDS ORDERED: ACETAMINOPHEN 325 MG TABLET (FP) PO PRN ×2 (16:47)
[2021-08-02] MEDS ORDERED: NICOTINE 10 MG CARTRIDGE (INHALER) IH PRN (16:47)
[2021-08-02] MEDS ORDERED: LOPERAMIDE HCL 2 MG CAPSULE PO PRN (16:47)
[2021-08-02] MEDS ORDERED: MAG HYDROX/AL HYDROX/SIMETH 30 ML UNIT-DOSE CUP PO PRN (16:47)
[2021-08-02] MEDS ORDERED: ONDANSETRON *ODT* 4 MG TABLET SL PRN (16:47)
[2021-08-02] MEDS ORDERED: MENTHOL/PHENOL 1 EACH UD MM PRN (16:47)
[2021-08-02] MEDS ORDERED: BISMUTH SUBSALICYLATE 524 MG/30 ML PO PRN (16:47)
[2021-08-02] MEDS ORDERED: MAGNESIUM HYDROX 2400MG/30ML ORAL SUSPENSION 30 ML CUP PO PRN (16:47)
[2021-08-02] MEDS ORDERED: IBUPROFEN 400 MG TABLET (FP) PO PRN (16:47)
[2021-08-02] MEDS ORDERED: MAGNESIUM CITRATE 300 ML BOTTLE PO PRN (16:47)
[2021-08-02 18:01] VITALS: BMI 27.7
[2021-08-02] MEDS: chlordiazePOXIDE HCL 25 MG CAPSULE PO SCH ×2 (18:34→22:53)
[2021-08-02] MEDS: hydrOXYzine PAMOATE 25 MG CAPSULE (FP) PO SCH ×2 (18:35→22:53)
[2021-08-02] MEDS ORDERED: GABAPENTIN 300 MG CAPSULE PO ONE (19:07)
[2021-08-02] MEDS: DICLOFENAC SODIUM 25 MG TABLET.DR PO SCH (22:52)
[2021-08-02] MEDS: MELATONIN 5 MG TABLETS PO SCH (22:53)
[2021-08-02] MEDS: THIAMINE HCL 100 MG TABLET (FP) PO SCH (22:53)
[2021-08-02] MEDS: METHOCARBAMOL 500 MG TABLET PO PRN (22:54)
[2021-08-03] MEDS: chlordiazePOXIDE HCL 25 MG CAPSULE PO SCH ×4 (06:22→22:26)
[2021-08-03] MEDS: hydrOXYzine PAMOATE 25 MG CAPSULE (FP) PO SCH ×5 (06:22→22:26)
[2021-08-03] MEDS: PRENATAL VITAMINS W/ FOLIC ACID TABLET (FP) PO SCH (10:27)
[2021-08-03] MEDS: DICLOFENAC SODIUM 25 MG TABLET.DR PO SCH ×2 (10:28→22:26)
[2021-08-03] MEDS: CELECOXIB 100 MG CAPSULE PO SCH (10:28)
[2021-08-03 11:57] LABS: HEMATOCRIT 46.7 % (35.4-49); HEMOGLOBIN 14.9 GM/dL (11.7-16.9); MCH 29.2 pg (25.7-33.7); MEAN CELL VOLUME 91.3 fl (80-96); MEAN PLT VOLUME 9.8 fl (7.5-11.1); PLATELET COUNT 271 10^3/uL (134-434); RBC 5.11 M/mm3 (4.00-5.60); RDW 13.8 % (11.9-15.9); WHITE BLOOD COUNT 3.2 K/mm3 (4.0-10.0)
[2021-08-03 12:09] LABS: CALCIUM 8.8 mg/dL (8.5-10.1)
[2021-08-03 12:12] LABS: CREATININE 1.3 mg/dL (0.55-1.3)
[2021-08-03 12:13] LABS: BILIRUBIN,TOTAL 0.4 mg/dL (0.2-1); TOT PROT 5.7 g/dl (6.4-8.2)
[2021-08-03] MEDS ORDERED: SUVOREXANT 10 MG TABLET PO PRN (22:00)
[2021-08-03] MEDS: THIAMINE HCL 100 MG TABLET (FP) PO SCH (22:26)
[2021-08-03] MEDS: MELATONIN 5 MG TABLETS PO SCH (22:26)
[2021-08-04] MEDS: METHOCARBAMOL 500 MG TABLET PO PRN (00:58)
[2021-08-04] MEDS: chlordiazePOXIDE HCL 25 MG CAPSULE PO PRN ×2 (00:58→10:18)
[2021-08-04] MEDS: hydrOXYzine PAMOATE 25 MG CAPSULE (FP) PO SCH ×5 (05:46→23:28)
[2021-08-04] MEDS: chlordiazePOXIDE HCL 25 MG CAPSULE PO SCH ×4 (05:46→22:21)
[2021-08-04 10:07] LABS: SARS-CoV-2 NAA Not Detected (Not Detected)
[2021-08-04] MEDS: PRENATAL VITAMINS W/ FOLIC ACID TABLET (FP) PO SCH (10:15)
[2021-08-04] MEDS: CELECOXIB 100 MG CAPSULE PO SCH (10:17)
[2021-08-04] MEDS ORDERED: PATIENT'S OWN MEDICATION (NON-FORMULARY) (Gabapentin [Neurontin] 600 MG Tablet) PO SCH (10:30)
[2021-08-04] MEDS: DICLOFENAC SODIUM 25 MG TABLET.DR PO SCH ×2 (11:36→22:20)
[2021-08-04] MEDS: GABAPENTIN 100 MG CAPSULE PO SCH ×2 (14:45→23:28)
[2021-08-04 21:42] VITALS: BP 124/87; PULSE 77; TEMP 96.9
[2021-08-04] MEDS: THIAMINE HCL 100 MG TABLET (FP) PO SCH (22:21)
[2021-08-04] MEDS: MELATONIN 5 MG TABLETS PO SCH (23:28)
[2021-08-05] MEDS ORDERED: chlordiazePOXIDE HCL 10 MG CAPSULE PO PRN
[2021-08-05] MEDS ORDERED: chlordiazePOXIDE HCL 10 MG CAPSULE PO SCH (05:00)
[2021-08-05] MEDS: GABAPENTIN 100 MG CAPSULE PO SCH (06:34)
[2021-08-05] MEDS: hydrOXYzine PAMOATE 25 MG CAPSULE (FP) PO SCH (06:34)
[2021-08-06] MEDS ORDERED: chlordiazePOXIDE HCL 10 MG CAPSULE PO SCH (05:00)
[2021-08-07] MEDS ORDERED: chlordiazePOXIDE HCL 10 MG CAPSULE PO ONE (05:00)
== END 2021-08-05 09:38 | disposition short-term general hospital (02) | DRG 775 ==
LOC: YASAS 14:07 → Y3N 17:36
PROVIDERS: ADMIT Allergy & Immunology; ATTEND Allergy & Immunology
PROC: HZ2ZZZZ Detoxification Services for Substance Abuse Treatment (ICD-10-PCS; principal; 2021-08-02)
DX: F10.230 Alcohol dependence with withdrawal, uncomplicated (principal); F12.20 Cannabis dependence, uncomplicated; F17.210 Nicotine dependence, cigarettes, uncomplicated; F19.24 Other psychoactive substance dependence with psychoactive substance-induced mood disorder; F41.9 Anxiety disorder, unspecified; F32.A Depression, unspecified; G47.00 Insomnia, unspecified; R44.0 Auditory hallucinations; R44.1 Visual hallucinations; M54.50 Low back pain, unspecified; Z87.39 Personal history of other diseases of the musculoskeletal system and connective tissue; Z86.69 Personal history of other diseases of the nervous system and sense organs; Z59.00 Homelessness unspecified; Z56.0 Unemployment, unspecified
CPT/HCPCS: 36415; 80053; 85027; 86780; C9803; U0003; U0005

== ENCOUNTER 2021-08-05 19:32 | Inpatient (IN) | payer OTHER ==
[2021-08-05] MEDS ORDERED: METHOCARBAMOL 500 MG TABLET PO PRN (22:17)
[2021-08-05] MEDS ORDERED: IBUPROFEN 400 MG TABLET (FP) PO PRN (22:17)
[2021-08-05] MEDS ORDERED: MAGNESIUM CITRATE 300 ML BOTTLE PO PRN (22:17)
[2021-08-05] MEDS ORDERED: ONDANSETRON *ODT* 4 MG TABLET SL PRN (22:17)
[2021-08-05] MEDS ORDERED: MELATONIN 5 MG TABLETS PO PRN (22:17)
[2021-08-05] MEDS ORDERED: LOPERAMIDE HCL 2 MG CAPSULE PO PRN (22:17)
[2021-08-05] MEDS ORDERED: MAGNESIUM HYDROX 2400MG/30ML ORAL SUSPENSION 30 ML CUP PO PRN (22:17)
[2021-08-05] MEDS ORDERED: BISMUTH SUBSALICYLATE 524 MG/30 ML PO PRN (22:17)
[2021-08-05] MEDS ORDERED: MENTHOL/PHENOL 1 EACH UD MM PRN (22:17)
[2021-08-05] MEDS ORDERED: MAG HYDROX/AL HYDROX/SIMETH 30 ML UNIT-DOSE CUP PO PRN (22:17)
[2021-08-05] MEDS ORDERED: ACETAMINOPHEN 325 MG TABLET (FP) PO PRN ×2 (22:17)
[2021-08-05] MEDS ORDERED: hydrOXYzine PAMOATE 25 MG CAPSULE (FP) PO PRN (22:17)
[2021-08-05] MEDS ORDERED: chlordiazePOXIDE HCL 25 MG CAPSULE PO PRN (22:19)
[2021-08-05] MEDS ORDERED: chlordiazePOXIDE HCL 25 MG CAPSULE PO SCH (23:00)
[2021-08-06] MEDS ORDERED: IBUPROFEN 400 MG TABLET (FP) PO ONE (03:02)
[2021-08-06] MEDS ORDERED: chlordiazePOXIDE 5 MG CAPSULE PO SCH (04:39)
[2021-08-06] MEDS ORDERED: chlordiazePOXIDE 5 MG CAPSULE PO PRN (04:40)
[2021-08-06] MEDS: chlordiazePOXIDE HCL 10 MG CAPSULE PO SCH ×4 (04:55→22:12)
[2021-08-06] MEDS ORDERED: DICLOFENAC SUBMICRONIZED 35 MG PO SCH (10:00)
[2021-08-06] MEDS: PRENATAL VITAMINS W/ FOLIC ACID TABLET (FP) PO SCH (10:47)
[2021-08-06] MEDS: PANTOPRAZOLE 40 MG TABLET PO SCH (10:47)
[2021-08-06] MEDS: GABAPENTIN 400 MG CAPSULE PO SCH (10:47)
[2021-08-06] MEDS: DICLOFENAC SODIUM 75 MG TABLET.DR PO SCH ×2 (15:46→17:43)
[2021-08-06] MEDS ORDERED: SUVOREXANT 10 MG TABLET PO PRN (22:00)
[2021-08-06] MEDS ORDERED: THIAMINE HCL 100 MG TABLET (FP) PO SCH (22:00)
[2021-08-07] MEDS ORDERED: chlordiazePOXIDE HCL 10 MG CAPSULE PO SCH (05:00)
[2021-08-07] MEDS ORDERED: PATIENT'S OWN MEDICATION (NON-FORMULARY) (Gabapentin [Gabapentin] 800 MG Tablet) PO SCH (07:00)
[2021-08-07] MEDS: DICLOFENAC SODIUM 75 MG TABLET.DR PO SCH (07:05)
[2021-08-07] MEDS: GABAPENTIN 400 MG CAPSULE PO SCH (10:11)
[2021-08-07] MEDS: PANTOPRAZOLE 40 MG TABLET PO SCH (10:11)
[2021-08-07] MEDS: PRENATAL VITAMINS W/ FOLIC ACID TABLET (FP) PO SCH (10:11)
[2021-08-07 12:40] VITALS: BP 134/89; PULSE 96; TEMP 98.8
[2021-08-08] MEDS ORDERED: chlordiazePOXIDE HCL 10 MG CAPSULE PO ONE (05:00)
== END 2021-08-07 14:09 | disposition left against medical advice (07) | DRG 770 ==
LOC: YASAS 19:32 → Y3N 08-06 12:14
PROVIDERS: ADMIT Allergy & Immunology; ATTEND Allergy & Immunology
PROC: HZ2ZZZZ Detoxification Services for Substance Abuse Treatment (ICD-10-PCS; principal; 2021-08-06)
DX: F10.230 Alcohol dependence with withdrawal, uncomplicated (principal); F17.210 Nicotine dependence, cigarettes, uncomplicated; F19.282 Other psychoactive substance dependence with psychoactive substance-induced sleep disorder; F19.24 Other psychoactive substance dependence with psychoactive substance-induced mood disorder; F41.9 Anxiety disorder, unspecified; F32.A Depression, unspecified; I83.813 Varicose veins of bilateral lower extremities with pain; M26.609 Unspecified temporomandibular joint disorder, unspecified side; Z86.69 Personal history of other diseases of the nervous system and sense organs; Z56.0 Unemployment, unspecified; Z59.00 Homelessness unspecified
CPT/HCPCS: C9803; U0003; U0005

== ENCOUNTER 2021-08-22 14:39 | Inpatient (IN) | payer OTHER ==
[2021-08-22 15:21] VITALS: BMI 28.0
[2021-08-22] MEDS ORDERED: MAGNESIUM CITRATE 300 ML BOTTLE PO PRN (17:11)
[2021-08-22] MEDS ORDERED: ACETAMINOPHEN 325 MG TABLET (FP) PO PRN ×2 (17:11)
[2021-08-22] MEDS ORDERED: chlordiazePOXIDE HCL 25 MG CAPSULE PO PRN (17:11)
[2021-08-22] MEDS ORDERED: MENTHOL/PHENOL 1 EACH UD MM PRN (17:11)
[2021-08-22] MEDS ORDERED: BISMUTH SUBSALICYLATE 524 MG/30 ML PO PRN (17:11)
[2021-08-22] MEDS ORDERED: LOPERAMIDE HCL 2 MG CAPSULE PO PRN (17:11)
[2021-08-22] MEDS ORDERED: MAG HYDROX/AL HYDROX/SIMETH 30 ML UNIT-DOSE CUP PO PRN (17:11)
[2021-08-22] MEDS ORDERED: ONDANSETRON *ODT* 4 MG TABLET SL PRN (17:11)
[2021-08-22] MEDS ORDERED: MAGNESIUM HYDROX 2400MG/30ML ORAL SUSPENSION 30 ML CUP PO PRN (17:11)
[2021-08-22] MEDS: MELATONIN 5 MG TABLETS PO SCH (23:29)
[2021-08-22] MEDS: hydrOXYzine PAMOATE 25 MG CAPSULE (FP) PO SCH ×2 (23:29→23:30)
[2021-08-22] MEDS: THIAMINE HCL 100 MG TABLET (FP) PO SCH (23:29)
[2021-08-22] MEDS: chlordiazePOXIDE HCL 25 MG CAPSULE PO SCH (23:30)
[2021-08-23] MEDS: hydrOXYzine PAMOATE 25 MG CAPSULE (FP) PO SCH ×5 (05:35→22:43)
[2021-08-23] MEDS: chlordiazePOXIDE HCL 25 MG CAPSULE PO SCH ×4 (05:36→22:43)
[2021-08-23] MEDS: PRENATAL VITAMINS W/ FOLIC ACID TABLET (FP) PO SCH (10:22)
[2021-08-23 10:41] LABS: HEMATOCRIT 44.9 % (35.4-49); HEMOGLOBIN 14.8 GM/dL (11.7-16.9); MCH 29.4 pg (25.7-33.7); MCHC 32.8 g/dl (32.0-35.9); MEAN CELL VOLUME 89.6 fl (80-96); MEAN PLT VOLUME 9.4 fl (7.5-11.1); PLATELET COUNT 294 10^3/uL (134-434); RBC 5.02 M/mm3 (4.00-5.60); RDW 14.3 % (11.9-15.9); WHITE BLOOD COUNT 3.5 K/mm3 (4.0-10.0)
[2021-08-23 10:43] LABS: CALCIUM 8.2 mg/dL (8.5-10.1)
[2021-08-23 10:44] LABS: ALBUMIN 2.8 g/dl (3.4-5.0); BLOOD UREA NITROGEN 10.6 mg/dL (7-18)
[2021-08-23 10:46] LABS: CREATININE 1.4 mg/dL (0.55-1.3)
[2021-08-23 10:48] LABS: TOT PROT 5.6 g/dl (6.4-8.2)
[2021-08-23 10:49] LABS: BILIRUBIN,TOTAL 0.4 mg/dL (0.2-1)
[2021-08-23] MEDS: METHOCARBAMOL 500 MG TABLET PO PRN (17:50)
[2021-08-23] MEDS: THIAMINE HCL 100 MG TABLET (FP) PO SCH (22:43)
[2021-08-23] MEDS: MELATONIN 5 MG TABLETS PO SCH (22:43)
[2021-08-24] MEDS: hydrOXYzine PAMOATE 25 MG CAPSULE (FP) PO SCH ×5 (05:25→22:24)
[2021-08-24] MEDS: chlordiazePOXIDE HCL 25 MG CAPSULE PO SCH ×4 (05:27→22:24)
[2021-08-24] MEDS: PRENATAL VITAMINS W/ FOLIC ACID TABLET (FP) PO SCH (11:04)
[2021-08-24] MEDS: METHOCARBAMOL 500 MG TABLET PO PRN ×2 (11:04→17:58)
[2021-08-24] MEDS: NICOTINE 10 MG CARTRIDGE (INHALER) IH PRN (11:05)
[2021-08-24] MEDS: IBUPROFEN 400 MG TABLET (FP) PO PRN (12:54)
[2021-08-24] MEDS: GABAPENTIN 400 MG CAPSULE PO SCH (15:45)
[2021-08-24] MEDS ORDERED: SUVOREXANT 10 MG TABLET PO PRN (22:00)
[2021-08-24] MEDS: THIAMINE HCL 100 MG TABLET (FP) PO SCH (22:25)
[2021-08-25] MEDS ORDERED: chlordiazePOXIDE HCL 10 MG CAPSULE PO PRN
[2021-08-25 00:08] LABS: SARS-CoV-2 NAA Not Detected (Not Detected)
[2021-08-25] MEDS: chlordiazePOXIDE HCL 10 MG CAPSULE PO SCH ×4 (05:26→22:10)
[2021-08-25] MEDS: hydrOXYzine PAMOATE 25 MG CAPSULE (FP) PO SCH ×5 (05:26→22:10)
[2021-08-25] MEDS: PRENATAL VITAMINS W/ FOLIC ACID TABLET (FP) PO SCH (10:19)
[2021-08-25] MEDS: GABAPENTIN 400 MG CAPSULE PO SCH (10:19)
[2021-08-25] MEDS: NICOTINE 10 MG CARTRIDGE (INHALER) IH PRN (15:28)
[2021-08-25] MEDS: METHOCARBAMOL 500 MG TABLET PO PRN (17:29)
[2021-08-25] MEDS: IBUPROFEN 400 MG TABLET (FP) PO PRN (19:50)
[2021-08-25] MEDS: THIAMINE HCL 100 MG TABLET (FP) PO SCH (22:10)
[2021-08-26] MEDS: hydrOXYzine PAMOATE 25 MG CAPSULE (FP) PO SCH ×5 (06:03→22:16)
[2021-08-26] MEDS: chlordiazePOXIDE HCL 10 MG CAPSULE PO SCH ×2 (06:04→17:31)
[2021-08-26] MEDS: PRENATAL VITAMINS W/ FOLIC ACID TABLET (FP) PO SCH (10:47)
[2021-08-26] MEDS: GABAPENTIN 400 MG CAPSULE PO SCH (10:47)
[2021-08-26] MEDS ORDERED: ARTIFICIAL TEARS (POLYVINYL ALCOHOL) OPTH DROPS OU PRN (10:54)
[2021-08-26] MEDS: METHOCARBAMOL 500 MG TABLET PO PRN ×2 (12:03→17:30)
[2021-08-26] MEDS: IBUPROFEN 400 MG TABLET (FP) PO PRN (17:32)
[2021-08-26] MEDS: THIAMINE HCL 100 MG TABLET (FP) PO SCH (22:16)
[2021-08-27] MEDS ORDERED: chlordiazePOXIDE HCL 10 MG CAPSULE PO ONE (05:00)
[2021-08-27] MEDS: hydrOXYzine PAMOATE 25 MG CAPSULE (FP) PO SCH ×2 (05:36→10:37)
[2021-08-27] MEDS: METHOCARBAMOL 500 MG TABLET PO PRN (05:38)
[2021-08-27 09:52] VITALS: BP 119/55; PULSE 77; TEMP 97.3
[2021-08-27] MEDS: PRENATAL VITAMINS W/ FOLIC ACID TABLET (FP) PO SCH (10:36)
[2021-08-27] MEDS: GABAPENTIN 400 MG CAPSULE PO SCH (10:36)
[2021-08-27] MEDS: NICOTINE 10 MG CARTRIDGE (INHALER) IH PRN (12:28)
== END 2021-08-27 12:25 | disposition other institution (70) | DRG 775 ==
LOC: YASAS 14:39 → Y6N 19:56
PROVIDERS: ADMIT Allergy & Immunology; ATTEND Allergy & Immunology
PROC: HZ2ZZZZ Detoxification Services for Substance Abuse Treatment (ICD-10-PCS; principal; 2021-08-22)
DX: F10.230 Alcohol dependence with withdrawal, uncomplicated (principal); F12.20 Cannabis dependence, uncomplicated; F17.210 Nicotine dependence, cigarettes, uncomplicated; F19.282 Other psychoactive substance dependence with psychoactive substance-induced sleep disorder; F19.24 Other psychoactive substance dependence with psychoactive substance-induced mood disorder; G51.0 Bell's palsy; Z87.39 Personal history of other diseases of the musculoskeletal system and connective tissue; Z86.79 Personal history of other diseases of the circulatory system; Z56.0 Unemployment, unspecified; Z59.00 Homelessness unspecified
CPT/HCPCS: 36415; 80053; 82962; 85027; 86780; 87811; C9803; U0003; U0005

== ENCOUNTER 2021-08-27 12:03 | Inpatient (IN) | payer OTHER ==
[2021-08-27] MEDS ORDERED: MENTHOL/PHENOL 1 EACH UD MM PRN (13:12)
[2021-08-27] MEDS ORDERED: MAGNESIUM HYDROX 2400MG/30ML ORAL SUSPENSION 30 ML CUP PO PRN (13:12)
[2021-08-27] MEDS ORDERED: LOPERAMIDE HCL 2 MG CAPSULE PO PRN (13:12)
[2021-08-27] MEDS ORDERED: IBUPROFEN 400 MG TABLET (FP) PO PRN (13:12)
[2021-08-27] MEDS ORDERED: MAG HYDROX/AL HYDROX/SIMETH 30 ML UNIT-DOSE CUP PO PRN (13:12)
[2021-08-27] MEDS ORDERED: guaiFENesin 200 MG/10 ML 10 ML UNIT-DOSE CUPS PO PRN (13:12)
[2021-08-27] MEDS ORDERED: P-EPHED 60MG/TRIPROLIDI 2.5MG TABLET PO PRN (13:12)
[2021-08-27] MEDS ORDERED: MAGNESIUM CITRATE 300 ML BOTTLE PO PRN (13:12)
[2021-08-27] MEDS ORDERED: ARTIFICIAL TEARS (POLYVINYL ALCOHOL) OPTH DROPS OU PRN (13:18)
[2021-08-27] MEDS: METHOCARBAMOL 500 MG TABLET PO SCH ×3 (14:35→21:23)
[2021-08-27] MEDS: hydrOXYzine PAMOATE 25 MG CAPSULE (FP) PO SCH ×3 (14:35→21:23)
[2021-08-27 16:10] VITALS: BMI 28.5
[2021-08-27] MEDS: THIAMINE HCL 100 MG TABLET (FP) PO SCH (21:23)
[2021-08-27] MEDS: MELATONIN 5 MG TABLETS PO SCH (21:23)
[2021-08-27] MEDS ORDERED: SUVOREXANT 10 MG TABLET PO PRN ×2 (22:00)
[2021-08-27] MEDS: DICLOFENAC SODIUM 75 MG TABLET.DR PO SCH (23:06)
[2021-08-28] MEDS: hydrOXYzine PAMOATE 25 MG CAPSULE (FP) PO SCH ×5 (07:22→21:27)
[2021-08-28] MEDS: ACETAMINOPHEN 325 MG TABLET (FP) PO PRN ×2 (07:23→15:13)
[2021-08-28] MEDS: NICOTINE 10 MG CARTRIDGE (INHALER) IH PRN (07:46)
[2021-08-28] MEDS: METHOCARBAMOL 500 MG TABLET PO SCH ×4 (10:39→21:27)
[2021-08-28] MEDS: GABAPENTIN 400 MG CAPSULE PO SCH (10:39)
[2021-08-28] MEDS: PRENATAL VITAMINS W/ FOLIC ACID TABLET (FP) PO SCH (10:40)
[2021-08-28] MEDS: NICOTINE 7 MG/24 HOURS TOPICAL PATCH TD SCH (10:41)
[2021-08-28] MEDS: DICLOFENAC SODIUM 75 MG TABLET.DR PO SCH ×2 (10:41→21:27)
[2021-08-28] MEDS: THIAMINE HCL 100 MG TABLET (FP) PO SCH (21:27)
[2021-08-28] MEDS: MELATONIN 5 MG TABLETS PO SCH (21:27)
[2021-08-29] MEDS: hydrOXYzine PAMOATE 25 MG CAPSULE (FP) PO SCH ×5 (06:29→21:50)
[2021-08-29] MEDS: ACETAMINOPHEN 325 MG TABLET (FP) PO PRN (06:32)
[2021-08-29] MEDS: METHOCARBAMOL 500 MG TABLET PO SCH ×4 (09:57→21:06)
[2021-08-29] MEDS: NICOTINE 7 MG/24 HOURS TOPICAL PATCH TD SCH (09:57)
[2021-08-29] MEDS: GABAPENTIN 400 MG CAPSULE PO SCH (09:57)
[2021-08-29] MEDS: PRENATAL VITAMINS W/ FOLIC ACID TABLET (FP) PO SCH (09:57)
[2021-08-29] MEDS: DICLOFENAC SODIUM 75 MG TABLET.DR PO SCH ×2 (09:58→21:07)
[2021-08-29] MEDS: THIAMINE HCL 100 MG TABLET (FP) PO SCH (21:06)
[2021-08-29] MEDS: MELATONIN 5 MG TABLETS PO SCH (21:06)
[2021-08-29] MEDS: NICOTINE 10 MG CARTRIDGE (INHALER) IH PRN (21:55)
[2021-08-30] MEDS: hydrOXYzine PAMOATE 25 MG CAPSULE (FP) PO SCH ×5 (06:34→21:36)
[2021-08-30] MEDS: ACETAMINOPHEN 325 MG TABLET (FP) PO PRN (06:34)
[2021-08-30] MEDS: GABAPENTIN 400 MG CAPSULE PO SCH (09:29)
[2021-08-30] MEDS: METHOCARBAMOL 500 MG TABLET PO SCH ×4 (09:29→21:36)
[2021-08-30] MEDS: DICLOFENAC SODIUM 75 MG TABLET.DR PO SCH ×2 (09:29→21:36)
[2021-08-30] MEDS: PRENATAL VITAMINS W/ FOLIC ACID TABLET (FP) PO SCH (09:30)
[2021-08-30] MEDS: NICOTINE 7 MG/24 HOURS TOPICAL PATCH TD SCH (09:30)
[2021-08-30] MEDS: NICOTINE 10 MG CARTRIDGE (INHALER) IH PRN (13:34)
[2021-08-30] MEDS: THIAMINE HCL 100 MG TABLET (FP) PO SCH (21:36)
[2021-08-30] MEDS: MELATONIN 5 MG TABLETS PO SCH (21:36)
[2021-08-30] MEDS ORDERED: SUVOREXANT 10 MG TABLET PO PRN (22:00)
[2021-08-30 22:46] VITALS: BP 133/96; PULSE 83; TEMP 98.6
[2021-08-31 14:07] LABS: SARS-CoV-2 NAA Not Detected (Not Detected)
== END 2021-08-30 23:09 | disposition left against medical advice (07) | DRG 770 ==
LOC: YASAS 12:03 → Y3W 12:04
PROVIDERS: ADMIT Allergy & Immunology; ATTEND Allergy & Immunology
PROC: HZ2ZZZZ Detoxification Services for Substance Abuse Treatment (ICD-10-PCS; principal; 2021-08-27)
DX: F10.20 Alcohol dependence, uncomplicated (principal); F16.20 Hallucinogen dependence, uncomplicated; F12.20 Cannabis dependence, uncomplicated; F17.210 Nicotine dependence, cigarettes, uncomplicated; F19.282 Other psychoactive substance dependence with psychoactive substance-induced sleep disorder; F19.280 Other psychoactive substance dependence with psychoactive substance-induced anxiety disorder; F19.24 Other psychoactive substance dependence with psychoactive substance-induced mood disorder; F41.8 Other specified anxiety disorders; F32.A Depression, unspecified; G47.00 Insomnia, unspecified; Z86.69 Personal history of other diseases of the nervous system and sense organs; Z59.00 Homelessness unspecified; Z56.0 Unemployment, unspecified
CPT/HCPCS: 82962; C9803; U0003; U0005

== ENCOUNTER 2021-09-16 11:46 | Inpatient (IN) | payer OTHER ==
[2021-09-16] MEDS ORDERED: DICYCLOMINE HCL 10 MG CAPSULE PO PRN (12:43)
[2021-09-16] MEDS ORDERED: BISMUTH SUBSALICYLATE 524 MG/30 ML PO PRN (12:43)
[2021-09-16] MEDS ORDERED: MAGNESIUM HYDROX 2400MG/30ML ORAL SUSPENSION 30 ML CUP PO PRN (12:43)
[2021-09-16] MEDS ORDERED: MAGNESIUM CITRATE 300 ML BOTTLE PO PRN (12:43)
[2021-09-16] MEDS ORDERED: LOPERAMIDE HCL 2 MG CAPSULE PO PRN (12:43)
[2021-09-16] MEDS ORDERED: MAG HYDROX/AL HYDROX/SIMETH 30 ML UNIT-DOSE CUP PO PRN (12:43)
[2021-09-16] MEDS ORDERED: ONDANSETRON *ODT* 4 MG TABLET SL PRN (12:43)
[2021-09-16] MEDS ORDERED: ACETAMINOPHEN 325 MG TABLET (FP) PO PRN ×2 (12:43)
[2021-09-16] MEDS ORDERED: chlordiazePOXIDE HCL 25 MG CAPSULE PO PRN (12:43)
[2021-09-16] MEDS ORDERED: MENTHOL/PHENOL 1 EACH UD MM PRN (12:43)
[2021-09-16 14:48] VITALS: BMI 27.3
[2021-09-16] MEDS: chlordiazePOXIDE HCL 25 MG CAPSULE PO SCH ×2 (18:10→22:18)
[2021-09-16] MEDS: PRENATAL VITAMINS W/ FOLIC ACID TABLET (FP) PO SCH (18:13)
[2021-09-16] MEDS: hydrOXYzine PAMOATE 25 MG CAPSULE (FP) PO SCH ×3 (18:13→22:21)
[2021-09-16] MEDS: METHOCARBAMOL 500 MG TABLET PO PRN (18:14)
[2021-09-16 18:31] LABS: HEMOGLOBIN 15.8 GM/dL (11.7-16.9); MCH 29.4 pg (25.7-33.7); MCHC 33.7 g/dl (32.0-35.9); MEAN CELL VOLUME 87.3 fl (80-96); MEAN PLT VOLUME 9.3 fl (7.5-11.1); PLATELET COUNT 325 10^3/uL (134-434); RBC 5.38 M/mm3 (4.00-5.60); RDW 14.5 % (11.9-15.9); WHITE BLOOD COUNT 7.5 K/mm3 (4.0-10.0)
[2021-09-16 18:32] LABS: CALCIUM 9.5 mg/dL (8.5-10.1)
[2021-09-16 18:33] LABS: BLOOD UREA NITROGEN 14.3 mg/dL (7-18)
[2021-09-16 18:36] LABS: CREATININE 1.3 mg/dL (0.55-1.3)
[2021-09-16 18:37] LABS: BILIRUBIN,TOTAL 0.7 mg/dL (0.2-1); TOT PROT 7.5 g/dl (6.4-8.2)
[2021-09-16] MEDS ORDERED: MELATONIN 5 MG TABLETS PO SCH (22:00)
[2021-09-16] MEDS: THIAMINE HCL 100 MG TABLET (FP) PO SCH (22:17)
[2021-09-17] MEDS: hydrOXYzine PAMOATE 25 MG CAPSULE (FP) PO SCH ×5 (06:11→22:39)
[2021-09-17] MEDS: chlordiazePOXIDE HCL 25 MG CAPSULE PO SCH ×4 (06:11→22:39)
[2021-09-17] MEDS: PRENATAL VITAMINS W/ FOLIC ACID TABLET (FP) PO SCH (10:58)
[2021-09-17] MEDS: NICOTINE 10 MG CARTRIDGE (INHALER) IH PRN (11:02)
[2021-09-17] MEDS ORDERED: ARTIFICIAL TEARS (POLYVINYL ALCOHOL) OPTH DROPS OU PRN (11:39)
[2021-09-17] MEDS: THIAMINE HCL 100 MG TABLET (FP) PO SCH (22:39)
[2021-09-17] MEDS: SUVOREXANT 20 MG TABLET PO PRN (22:40)
[2021-09-18] MEDS: hydrOXYzine PAMOATE 25 MG CAPSULE (FP) PO SCH ×5 (06:06→22:21)
[2021-09-18] MEDS: chlordiazePOXIDE HCL 25 MG CAPSULE PO SCH ×4 (06:06→22:20)
[2021-09-18] MEDS: PRENATAL VITAMINS W/ FOLIC ACID TABLET (FP) PO SCH (10:50)
[2021-09-18] MEDS: GABAPENTIN 400 MG CAPSULE PO SCH (10:50)
[2021-09-18] MEDS: METHOCARBAMOL 500 MG TABLET PO PRN (10:51)
[2021-09-18] MEDS: IBUPROFEN 400 MG TABLET (FP) PO PRN (13:30)
[2021-09-18 15:07] LABS: SARS-CoV-2 NAA Not Detected (Not Detected)
[2021-09-18] MEDS: NICOTINE 10 MG CARTRIDGE (INHALER) IH PRN (21:56)
[2021-09-18] MEDS: THIAMINE HCL 100 MG TABLET (FP) PO SCH (22:21)
[2021-09-18] MEDS: SUVOREXANT 20 MG TABLET PO PRN (22:22)
[2021-09-19] MEDS ORDERED: chlordiazePOXIDE HCL 10 MG CAPSULE PO PRN
[2021-09-19] MEDS: chlordiazePOXIDE HCL 10 MG CAPSULE PO SCH ×4 (05:17→22:01)
[2021-09-19] MEDS: hydrOXYzine PAMOATE 25 MG CAPSULE (FP) PO SCH ×5 (05:17→22:02)
[2021-09-19] MEDS: PRENATAL VITAMINS W/ FOLIC ACID TABLET (FP) PO SCH (10:19)
[2021-09-19] MEDS: GABAPENTIN 400 MG CAPSULE PO SCH (10:19)
[2021-09-19] MEDS: METHOCARBAMOL 500 MG TABLET PO PRN ×2 (10:20→16:33)
[2021-09-19] MEDS: NICOTINE 10 MG CARTRIDGE (INHALER) IH PRN (16:36)
[2021-09-19] MEDS: BACITRACIN 0.9 GM PACKET TP SCH (22:01)
[2021-09-19] MEDS: THIAMINE HCL 100 MG TABLET (FP) PO SCH (22:02)
[2021-09-19] MEDS: SUVOREXANT 20 MG TABLET PO PRN (22:02)
[2021-09-20] MEDS: chlordiazePOXIDE HCL 10 MG CAPSULE PO SCH ×2 (05:27→17:43)
[2021-09-20] MEDS: hydrOXYzine PAMOATE 25 MG CAPSULE (FP) PO SCH ×5 (05:27→21:40)
[2021-09-20] MEDS: METHOCARBAMOL 500 MG TABLET PO PRN ×2 (05:30→13:44)
[2021-09-20] MEDS: GABAPENTIN 400 MG CAPSULE PO SCH (10:32)
[2021-09-20] MEDS: PRENATAL VITAMINS W/ FOLIC ACID TABLET (FP) PO SCH (10:32)
[2021-09-20] MEDS: NICOTINE 10 MG CARTRIDGE (INHALER) IH PRN (13:03)
[2021-09-20] MEDS: THIAMINE HCL 100 MG TABLET (FP) PO SCH (21:40)
[2021-09-20] MEDS: SUVOREXANT 20 MG TABLET PO PRN (21:40)
[2021-09-20] MEDS: BACITRACIN 0.9 GM PACKET TP SCH (21:40)
[2021-09-21] MEDS ORDERED: chlordiazePOXIDE HCL 10 MG CAPSULE PO ONE (05:00)
[2021-09-21] MEDS: hydrOXYzine PAMOATE 25 MG CAPSULE (FP) PO SCH ×2 (06:10→10:10)
[2021-09-21] MEDS: IBUPROFEN 400 MG TABLET (FP) PO PRN (06:13)
[2021-09-21] MEDS: METHOCARBAMOL 500 MG TABLET PO PRN (06:14)
[2021-09-21 09:02] VITALS: BP 105/71; PULSE 91; TEMP 96.9
[2021-09-21] MEDS: GABAPENTIN 400 MG CAPSULE PO SCH (10:10)
[2021-09-21] MEDS: PRENATAL VITAMINS W/ FOLIC ACID TABLET (FP) PO SCH (10:10)
[2021-09-21] MEDS: NICOTINE 10 MG CARTRIDGE (INHALER) IH PRN (10:25)
== END 2021-09-21 11:14 | disposition home or self-care (01) | DRG 775 ==
LOC: YASAS 11:46 → Y6N 16:16 → Y3N 09-18 23:01
PROVIDERS: ADMIT Allergy & Immunology; ATTEND Allergy & Immunology
PROC: HZ2ZZZZ Detoxification Services for Substance Abuse Treatment (ICD-10-PCS; principal; 2021-09-16)
DX: F10.230 Alcohol dependence with withdrawal, uncomplicated (principal); F12.20 Cannabis dependence, uncomplicated; F17.210 Nicotine dependence, cigarettes, uncomplicated; F19.282 Other psychoactive substance dependence with psychoactive substance-induced sleep disorder; F19.280 Other psychoactive substance dependence with psychoactive substance-induced anxiety disorder; F19.24 Other psychoactive substance dependence with psychoactive substance-induced mood disorder; G47.00 Insomnia, unspecified; G51.0 Bell's palsy; I83.893 Varicose veins of bilateral lower extremities with other complications; M26.609 Unspecified temporomandibular joint disorder, unspecified side; M51.26 Other intervertebral disc displacement, lumbar region; Z99.89 Dependence on other enabling machines and devices; Z56.0 Unemployment, unspecified; Z59.00 Homelessness unspecified
CPT/HCPCS: 36415; 80053; 85027; 86780; C9803-CS; U0003; U0005

== ENCOUNTER 2021-10-22 10:27 | Inpatient (IN) | payer OTHER ==
[2021-10-22 11:04] VITALS: BMI 28.0
[2021-10-22] MEDS ORDERED: LOPERAMIDE HCL 2 MG CAPSULE PO PRN (11:46)
[2021-10-22] MEDS ORDERED: ONDANSETRON *ODT* 4 MG TABLET SL PRN (11:46)
[2021-10-22] MEDS ORDERED: ACETAMINOPHEN 325 MG TABLET (FP) PO PRN ×2 (11:46)
[2021-10-22] MEDS ORDERED: IBUPROFEN 400 MG TABLET (FP) PO PRN (11:46)
[2021-10-22] MEDS ORDERED: MAG HYDROX/AL HYDROX/SIMETH 30 ML UNIT-DOSE CUP PO PRN (11:46)
[2021-10-22] MEDS ORDERED: MAGNESIUM CITRATE 300 ML BOTTLE PO PRN (11:46)
[2021-10-22] MEDS ORDERED: BENZOCAINE/MENTHOL (CHLORASEPTIC ) LOZENGE MM PRN (11:46)
[2021-10-22] MEDS ORDERED: chlordiazePOXIDE HCL 25 MG CAPSULE PO PRN (11:46)
[2021-10-22] MEDS ORDERED: MAGNESIUM HYDROX 2400MG/30ML ORAL SUSPENSION 30 ML CUP PO PRN (11:46)
[2021-10-22] MEDS ORDERED: BISMUTH SUBSALICYLATE 262 MG/15 ML BTL PO PRN (11:46)
[2021-10-22] MEDS ORDERED: DICYCLOMINE HCL 10 MG CAPSULE PO PRN (11:46)
[2021-10-22] MEDS ORDERED: ARTIFICIAL TEARS (POLYVINYL ALCOHOL) OPTH DROPS OU PRN (11:51)
[2021-10-22] MEDS ORDERED: chlordiazePOXIDE HCL 25 MG CAPSULE ONE (12:40)
[2021-10-22] MEDS: hydrOXYzine PAMOATE 25 MG CAPSULE (FP) PO SCH ×3 (13:08→22:17)
[2021-10-22] MEDS: PRENATAL VITAMINS W/ FOLIC ACID TABLET (FP) PO SCH (13:08)
[2021-10-22] MEDS: METHOCARBAMOL 500 MG TABLET PO PRN (13:08)
[2021-10-22 17:02] LABS: HEMATOCRIT 48.5 % (35.4-49); HEMOGLOBIN 15.9 GM/dL (11.7-16.9); MCH 29.5 pg (25.7-33.7); MCHC 32.9 g/dl (32.0-35.9); MEAN CELL VOLUME 89.7 fl (80-96); MEAN PLT VOLUME 9.8 fl (7.5-11.1); PLATELET COUNT 313 10^3/uL (134-434); RBC 5.41 M/mm3 (4.00-5.60); RDW 14.7 % (11.9-15.9); WHITE BLOOD COUNT 3.8 K/mm3 (4.0-10.0)
[2021-10-22 17:06] LABS: CALCIUM 9.2 mg/dL (8.5-10.1)
[2021-10-22 17:07] LABS: BLOOD UREA NITROGEN 14.5 mg/dL (7-18)
[2021-10-22 17:08] LABS: ALBUMIN 3.6 g/dl (3.4-5.0)
[2021-10-22 17:09] LABS: CREATININE 1.3 mg/dL (0.55-1.3)
[2021-10-22 17:11] LABS: TOT PROT 6.8 g/dl (6.4-8.2)
[2021-10-22 17:16] LABS: BILIRUBIN,TOTAL 0.4 mg/dL (0.2-1)
[2021-10-22] MEDS: DOXYCYCLINE HYCLATE 100 MG TABLET PO SCH (19:35)
[2021-10-22] MEDS: chlordiazePOXIDE HCL 25 MG CAPSULE PO SCH ×2 (19:35→22:13)
[2021-10-22] MEDS ORDERED: MELATONIN 5 MG TABLETS PO SCH (22:00)
[2021-10-22] MEDS: THIAMINE HCL 100 MG TABLET (FP) PO SCH (22:15)
[2021-10-23] MEDS: hydrOXYzine PAMOATE 25 MG CAPSULE (FP) PO SCH ×5 (05:32→23:00)
[2021-10-23] MEDS: chlordiazePOXIDE HCL 25 MG CAPSULE PO SCH ×4 (05:32→23:02)
[2021-10-23] MEDS: DOXYCYCLINE HYCLATE 100 MG TABLET PO SCH ×2 (10:36→17:40)
[2021-10-23] MEDS: PRENATAL VITAMINS W/ FOLIC ACID TABLET (FP) PO SCH (10:36)
[2021-10-23] MEDS: METHOCARBAMOL 500 MG TABLET PO PRN (10:37)
[2021-10-23] MEDS: GABAPENTIN 400 MG CAPSULE PO SCH (11:33)
[2021-10-23] MEDS: CHOLECALCIFEROL (VIT D3) 1,000 UNIT (25 MCG) TABLET PO SCH (11:48)
[2021-10-23] MEDS ORDERED: ARTIFICIAL TEARS (POLYVINYL ALCOHOL) OPTH DROPS OD SCH (14:00)
[2021-10-23] MEDS: DICLOFENAC SODIUM 25 MG TABLET.DR PO SCH ×2 (15:27→23:04)
[2021-10-23] MEDS: NICOTINE 10 MG CARTRIDGE (INHALER) IH PRN (15:28)
[2021-10-23] MEDS: THIAMINE HCL 100 MG TABLET (FP) PO SCH (23:01)
[2021-10-24] MEDS: hydrOXYzine PAMOATE 25 MG CAPSULE (FP) PO SCH ×5 (06:22→22:48)
[2021-10-24] MEDS: chlordiazePOXIDE HCL 25 MG CAPSULE PO SCH ×4 (06:22→22:48)
[2021-10-24] MEDS: DICLOFENAC SODIUM 25 MG TABLET.DR PO SCH ×3 (06:24→22:48)
[2021-10-24] MEDS: PRENATAL VITAMINS W/ FOLIC ACID TABLET (FP) PO SCH (10:08)
[2021-10-24] MEDS: DOXYCYCLINE HYCLATE 100 MG TABLET PO SCH ×2 (10:09→17:32)
[2021-10-24] MEDS: GABAPENTIN 400 MG CAPSULE PO SCH (10:09)
[2021-10-24] MEDS: CHOLECALCIFEROL (VIT D3) 1,000 UNIT (25 MCG) TABLET PO SCH (10:09)
[2021-10-24] MEDS: NICOTINE 10 MG CARTRIDGE (INHALER) IH PRN ×2 (11:24→17:33)
[2021-10-24 12:08] LABS: SARS-CoV-2 NAA Not Detected (Not Detected)
[2021-10-24] MEDS: ARTIFICIAL TEARS (POLYVINYL ALCOHOL) OPTH DROPS OU PRN (14:34)
[2021-10-24] MEDS: THIAMINE HCL 100 MG TABLET (FP) PO SCH (22:48)
[2021-10-24] MEDS: SUVOREXANT 20 MG TABLET PO PRN (22:50)
[2021-10-25] MEDS ORDERED: chlordiazePOXIDE HCL 10 MG CAPSULE PO PRN
[2021-10-25] MEDS: chlordiazePOXIDE HCL 10 MG CAPSULE PO SCH ×4 (05:13→22:28)
[2021-10-25] MEDS: ARTIFICIAL TEARS (POLYVINYL ALCOHOL) OPTH DROPS OU PRN ×2 (05:13→17:54)
[2021-10-25] MEDS: hydrOXYzine PAMOATE 25 MG CAPSULE (FP) PO SCH ×5 (05:14→22:29)
[2021-10-25] MEDS: DICLOFENAC SODIUM 25 MG TABLET.DR PO SCH ×3 (05:14→22:28)
[2021-10-25] MEDS: METHOCARBAMOL 500 MG TABLET PO PRN (09:29)
[2021-10-25] MEDS: DOXYCYCLINE HYCLATE 100 MG TABLET PO SCH ×2 (09:29→17:53)
[2021-10-25] MEDS: CHOLECALCIFEROL (VIT D3) 1,000 UNIT (25 MCG) TABLET PO SCH (09:29)
[2021-10-25] MEDS: GABAPENTIN 400 MG CAPSULE PO SCH (09:29)
[2021-10-25] MEDS: PRENATAL VITAMINS W/ FOLIC ACID TABLET (FP) PO SCH (09:30)
[2021-10-25] MEDS: NICOTINE 10 MG CARTRIDGE (INHALER) IH PRN (10:10)
[2021-10-25] MEDS: SUVOREXANT 20 MG TABLET PO PRN (21:55)
[2021-10-25] MEDS: THIAMINE HCL 100 MG TABLET (FP) PO SCH (22:28)
[2021-10-26] MEDS: DICLOFENAC SODIUM 25 MG TABLET.DR PO SCH ×3 (05:48→22:14)
[2021-10-26] MEDS: hydrOXYzine PAMOATE 25 MG CAPSULE (FP) PO SCH ×5 (05:48→22:14)
[2021-10-26] MEDS: chlordiazePOXIDE HCL 10 MG CAPSULE PO SCH ×2 (05:48→18:01)
[2021-10-26] MEDS: ARTIFICIAL TEARS (POLYVINYL ALCOHOL) OPTH DROPS OU PRN (05:48)
[2021-10-26] MEDS: NICOTINE 10 MG CARTRIDGE (INHALER) IH PRN ×2 (06:57→14:20)
[2021-10-26] MEDS: GABAPENTIN 400 MG CAPSULE PO SCH (11:01)
[2021-10-26] MEDS: DOXYCYCLINE HYCLATE 100 MG TABLET PO SCH ×2 (11:02→18:02)
[2021-10-26] MEDS: PRENATAL VITAMINS W/ FOLIC ACID TABLET (FP) PO SCH (11:02)
[2021-10-26] MEDS: METHOCARBAMOL 500 MG TABLET PO PRN (11:02)
[2021-10-26] MEDS: CHOLECALCIFEROL (VIT D3) 1,000 UNIT (25 MCG) TABLET PO SCH (11:02)
[2021-10-26] MEDS: THIAMINE HCL 100 MG TABLET (FP) PO SCH (22:13)
[2021-10-27] MEDS ORDERED: chlordiazePOXIDE HCL 10 MG CAPSULE PO ONE (05:00)
[2021-10-27] MEDS: DICLOFENAC SODIUM 25 MG TABLET.DR PO SCH (05:51)
[2021-10-27] MEDS: hydrOXYzine PAMOATE 25 MG CAPSULE (FP) PO SCH ×2 (05:51→10:05)
[2021-10-27] MEDS: GABAPENTIN 400 MG CAPSULE PO SCH (10:04)
[2021-10-27] MEDS: PRENATAL VITAMINS W/ FOLIC ACID TABLET (FP) PO SCH (10:04)
[2021-10-27] MEDS: DOXYCYCLINE HYCLATE 100 MG TABLET PO SCH (10:04)
[2021-10-27] MEDS: METHOCARBAMOL 500 MG TABLET PO PRN (10:04)
[2021-10-27] MEDS: CHOLECALCIFEROL (VIT D3) 1,000 UNIT (25 MCG) TABLET PO SCH (10:05)
[2021-10-27] MEDS: ARTIFICIAL TEARS (POLYVINYL ALCOHOL) OPTH DROPS OU PRN (10:05)
[2021-10-27] MEDS: NICOTINE 10 MG CARTRIDGE (INHALER) IH PRN (10:08)
[2021-10-27 13:00] VITALS: BP 137/81; PULSE 85; TEMP 98
== END 2021-10-27 12:59 | disposition other institution (70) | DRG 774 ==
LOC: YASAS 10:27 → Y6N 12:21
PROVIDERS: ADMIT Allergy & Immunology; ATTEND Allergy & Immunology
PROC: HZ2ZZZZ Detoxification Services for Substance Abuse Treatment (ICD-10-PCS; principal; 2021-10-22)
DX: F10.230 Alcohol dependence with withdrawal, uncomplicated (principal); F14.20 Cocaine dependence, uncomplicated; F12.20 Cannabis dependence, uncomplicated; F17.213 Nicotine dependence, cigarettes, with withdrawal; F19.280 Other psychoactive substance dependence with psychoactive substance-induced anxiety disorder; F19.282 Other psychoactive substance dependence with psychoactive substance-induced sleep disorder; F19.24 Other psychoactive substance dependence with psychoactive substance-induced mood disorder; F41.9 Anxiety disorder, unspecified; F32.A Depression, unspecified; Z86.69 Personal history of other diseases of the nervous system and sense organs; Z99.89 Dependence on other enabling machines and devices
CPT/HCPCS: 36415; 80053; 85027; 86780; 87811; C9803-CS; U0003; U0005

== ENCOUNTER 2021-10-27 13:04 | Inpatient (IN) | payer OTHER ==
[2021-10-27] MEDS ORDERED: guaiFENesin 200 MG/10 ML 10 ML UNIT-DOSE CUPS PO PRN (14:11)
[2021-10-27] MEDS ORDERED: IBUPROFEN 400 MG TABLET (FP) PO PRN (14:11)
[2021-10-27] MEDS ORDERED: BENZOCAINE/MENTHOL (CHLORASEPTIC ) LOZENGE MM PRN (14:11)
[2021-10-27] MEDS ORDERED: P-EPHED 60MG/TRIPROLIDI 2.5MG TABLET PO PRN (14:11)
[2021-10-27] MEDS ORDERED: MAGNESIUM HYDROX 2400MG/30ML ORAL SUSPENSION 30 ML CUP PO PRN (14:11)
[2021-10-27] MEDS ORDERED: MAGNESIUM CITRATE 300 ML BOTTLE PO PRN (14:11)
[2021-10-27] MEDS ORDERED: MAG HYDROX/AL HYDROX/SIMETH 30 ML UNIT-DOSE CUP PO PRN (14:11)
[2021-10-27] MEDS ORDERED: LOPERAMIDE HCL 2 MG CAPSULE PO PRN (14:11)
[2021-10-27] MEDS: NICOTINE 10 MG CARTRIDGE (INHALER) IH PRN (16:30)
[2021-10-27] MEDS: DOXYCYCLINE HYCLATE 100 MG TABLET PO SCH (17:01)
[2021-10-27] MEDS: THIAMINE HCL 100 MG TABLET (FP) PO SCH (21:28)
[2021-10-27] MEDS: MELATONIN 5 MG TABLETS PO PRN (21:28)
[2021-10-27] MEDS: SUVOREXANT 20 MG TABLET PO PRN (21:29)
[2021-10-28] MEDS: DOXYCYCLINE HYCLATE 100 MG TABLET PO SCH ×2 (06:09→17:16)
[2021-10-28] MEDS: ARTIFICIAL TEARS (POLYVINYL ALCOHOL) OPTH DROPS OU PRN (09:00)
[2021-10-28] MEDS: GABAPENTIN 400 MG CAPSULE PO SCH (10:39)
[2021-10-28] MEDS: PRENATAL VITAMINS W/ FOLIC ACID TABLET (FP) PO SCH (10:39)
[2021-10-28] MEDS: DICLOFENAC SODIUM 75 MG TABLET.DR PO PRN (10:40)
[2021-10-28] MEDS: NICOTINE 10 MG CARTRIDGE (INHALER) IH PRN (10:41)
[2021-10-28] MEDS: ACETAMINOPHEN 325 MG TABLET (FP) PO PRN (13:57)
[2021-10-28] MEDS: hydrOXYzine PAMOATE 25 MG CAPSULE (FP) PO PRN (13:57)
[2021-10-28] MEDS: SUVOREXANT 20 MG TABLET PO PRN (21:07)
[2021-10-28] MEDS: THIAMINE HCL 100 MG TABLET (FP) PO SCH (21:46)
[2021-10-29] MEDS: DOXYCYCLINE HYCLATE 100 MG TABLET PO SCH ×2 (06:31→17:01)
[2021-10-29] MEDS: ARTIFICIAL TEARS (POLYVINYL ALCOHOL) OPTH DROPS OU PRN (09:59)
[2021-10-29] MEDS: DICLOFENAC SODIUM 75 MG TABLET.DR PO PRN (09:59)
[2021-10-29] MEDS: hydrOXYzine PAMOATE 25 MG CAPSULE (FP) PO PRN ×3 (10:00→21:09)
[2021-10-29] MEDS: PRENATAL VITAMINS W/ FOLIC ACID TABLET (FP) PO SCH (10:00)
[2021-10-29] MEDS: GABAPENTIN 400 MG CAPSULE PO SCH (10:00)
[2021-10-29] MEDS: THIAMINE HCL 100 MG TABLET (FP) PO SCH (21:08)
[2021-10-29] MEDS: SUVOREXANT 20 MG TABLET PO PRN (21:08)
[2021-10-30] MEDS: DOXYCYCLINE HYCLATE 100 MG TABLET PO SCH ×2 (05:54→17:24)
[2021-10-30] MEDS: hydrOXYzine PAMOATE 25 MG CAPSULE (FP) PO PRN ×5 (05:57→21:37)
[2021-10-30] MEDS: GABAPENTIN 400 MG CAPSULE PO SCH (11:13)
[2021-10-30] MEDS: PRENATAL VITAMINS W/ FOLIC ACID TABLET (FP) PO SCH (11:14)
[2021-10-30] MEDS: ACETAMINOPHEN 325 MG TABLET (FP) PO PRN (11:15)
[2021-10-30] MEDS ORDERED: METHOCARBAMOL 500 MG TABLET PO ONE (14:06)
[2021-10-30] MEDS: ARTIFICIAL TEARS (POLYVINYL ALCOHOL) OPTH DROPS OU PRN ×2 (14:48→18:27)
[2021-10-30] MEDS: THIAMINE HCL 100 MG TABLET (FP) PO SCH (21:37)
[2021-10-30] MEDS: SUVOREXANT 20 MG TABLET PO PRN (21:37)
[2021-10-30] MEDS: METHOCARBAMOL 500 MG TABLET PO SCH (21:38)
[2021-10-31] MEDS: DOXYCYCLINE HYCLATE 100 MG TABLET PO SCH ×2 (06:48→18:20)
[2021-10-31] MEDS: METHOCARBAMOL 500 MG TABLET PO SCH ×3 (06:49→21:05)
[2021-10-31] MEDS: hydrOXYzine PAMOATE 25 MG CAPSULE (FP) PO PRN ×3 (06:51→18:21)
[2021-10-31] MEDS: NICOTINE 10 MG CARTRIDGE (INHALER) IH PRN ×2 (07:56→16:43)
[2021-10-31] MEDS: ARTIFICIAL TEARS (POLYVINYL ALCOHOL) OPTH DROPS OU PRN ×2 (08:39→16:41)
[2021-10-31] MEDS: PRENATAL VITAMINS W/ FOLIC ACID TABLET (FP) PO SCH (09:59)
[2021-10-31] MEDS: GABAPENTIN 400 MG CAPSULE PO SCH (09:59)
[2021-10-31] MEDS: DICLOFENAC SODIUM 75 MG TABLET.DR PO PRN ×2 (10:00→21:05)
[2021-10-31 14:09] LABS: SARS-CoV-2 NAA Not Detected (Not Detected)
[2021-10-31] MEDS: ACETAMINOPHEN 325 MG TABLET (FP) PO PRN (16:44)
[2021-10-31] MEDS: SUVOREXANT 20 MG TABLET PO PRN (21:05)
[2021-10-31] MEDS: THIAMINE HCL 100 MG TABLET (FP) PO SCH (21:05)
[2021-10-31] MEDS: MELATONIN 5 MG TABLETS PO PRN (21:05)
[2021-11-01] MEDS: DOXYCYCLINE HYCLATE 100 MG TABLET PO SCH (06:27)
[2021-11-01] MEDS: METHOCARBAMOL 500 MG TABLET PO SCH (06:27)
[2021-11-01] MEDS: hydrOXYzine PAMOATE 25 MG CAPSULE (FP) PO PRN (06:28)
[2021-11-01 06:29] VITALS: TEMP 96.9
[2021-11-01] MEDS: GABAPENTIN 400 MG CAPSULE PO SCH (09:08)
[2021-11-01] MEDS: PRENATAL VITAMINS W/ FOLIC ACID TABLET (FP) PO SCH (09:08)
[2021-11-01 12:19] VITALS: BP 120/80; PULSE 80
== END 2021-11-01 12:57 | disposition left against medical advice (07) | DRG 770 ==
LOC: YASAS 13:04 → Y3W 13:06
PROVIDERS: ADMIT Allergy & Immunology; ATTEND Psychiatry & Neurology Pain Medicine
PROC: HZ42ZZZ Group Counseling for Substance Abuse Treatment, Cognitive-Behavioral (ICD-10-PCS; principal; 2021-10-27)
DX: F10.20 Alcohol dependence, uncomplicated (principal); F14.20 Cocaine dependence, uncomplicated; F12.20 Cannabis dependence, uncomplicated; F17.210 Nicotine dependence, cigarettes, uncomplicated
CPT/HCPCS: C9803-CS; U0003; U0005

== ENCOUNTER 2021-11-01 21:03 | Inpatient (IN) | payer OTHER ==
[2021-11-01 23:31] VITALS: BMI 30.2
[2021-11-02] MEDS ORDERED: MAGNESIUM CITRATE 300 ML BOTTLE PO PRN (10:10)
[2021-11-02] MEDS ORDERED: guaiFENesin 200 MG/10 ML 10 ML UNIT-DOSE CUPS PO PRN (10:10)
[2021-11-02] MEDS ORDERED: LOPERAMIDE HCL 2 MG CAPSULE PO PRN (10:10)
[2021-11-02] MEDS ORDERED: P-EPHED 60MG/TRIPROLIDI 2.5MG TABLET PO PRN (10:10)
[2021-11-02] MEDS ORDERED: IBUPROFEN 400 MG TABLET (FP) PO PRN (10:10)
[2021-11-02] MEDS ORDERED: MAG HYDROX/AL HYDROX/SIMETH 30 ML UNIT-DOSE CUP PO PRN (10:10)
[2021-11-02] MEDS ORDERED: MAGNESIUM HYDROX 2400MG/30ML ORAL SUSPENSION 30 ML CUP PO PRN (10:10)
[2021-11-02] MEDS: NICOTINE 7 MG/24 HOURS TOPICAL PATCH TD SCH (14:27)
[2021-11-02] MEDS: PRENATAL VITAMINS W/ FOLIC ACID TABLET (FP) PO SCH (14:28)
[2021-11-02] MEDS: hydrOXYzine PAMOATE 25 MG CAPSULE (FP) PO SCH ×3 (14:47→21:03)
[2021-11-02] MEDS: ACETAMINOPHEN 325 MG TABLET (FP) PO PRN (14:47)
[2021-11-02] MEDS: NICOTINE 10 MG CARTRIDGE (INHALER) IH PRN (14:50)
[2021-11-02] MEDS: THIAMINE HCL 100 MG TABLET (FP) PO SCH (21:03)
[2021-11-02] MEDS: MELATONIN 5 MG TABLETS PO SCH (21:03)
[2021-11-02] MEDS: DICLOFENAC SODIUM 75 MG TABLET.DR PO SCH (21:04)
[2021-11-03] MEDS: hydrOXYzine PAMOATE 25 MG CAPSULE (FP) PO SCH ×5 (06:10→21:17)
[2021-11-03] MEDS: GABAPENTIN 400 MG CAPSULE PO SCH (10:31)
[2021-11-03] MEDS: PRENATAL VITAMINS W/ FOLIC ACID TABLET (FP) PO SCH (10:31)
[2021-11-03] MEDS: NICOTINE 7 MG/24 HOURS TOPICAL PATCH TD SCH (10:31)
[2021-11-03] MEDS: DICLOFENAC SODIUM 75 MG TABLET.DR PO SCH ×2 (10:32→21:16)
[2021-11-03] MEDS: MELATONIN 5 MG TABLETS PO SCH (21:16)
[2021-11-03] MEDS: THIAMINE HCL 100 MG TABLET (FP) PO SCH (21:16)
[2021-11-03] MEDS: NICOTINE 10 MG CARTRIDGE (INHALER) IH PRN (21:17)
[2021-11-04] MEDS: hydrOXYzine PAMOATE 25 MG CAPSULE (FP) PO SCH ×3 (06:07→14:39)
[2021-11-04] MEDS: GABAPENTIN 400 MG CAPSULE PO SCH (09:44)
[2021-11-04] MEDS: PRENATAL VITAMINS W/ FOLIC ACID TABLET (FP) PO SCH (09:44)
[2021-11-04] MEDS: DICLOFENAC SODIUM 75 MG TABLET.DR PO SCH ×2 (09:44→21:13)
[2021-11-04] MEDS: NICOTINE 7 MG/24 HOURS TOPICAL PATCH TD SCH (09:45)
[2021-11-04] MEDS: ACETAMINOPHEN 325 MG TABLET (FP) PO PRN ×2 (14:39→21:14)
[2021-11-04] MEDS: NICOTINE 10 MG CARTRIDGE (INHALER) IH PRN (20:45)
[2021-11-04] MEDS: THIAMINE HCL 100 MG TABLET (FP) PO SCH (21:13)
[2021-11-04] MEDS: SUVOREXANT 20 MG TABLET PO PRN (21:14)
[2021-11-05] MEDS: hydrOXYzine PAMOATE 25 MG CAPSULE (FP) PO PRN ×2 (06:08→10:19)
[2021-11-05] MEDS: DICLOFENAC SODIUM 75 MG TABLET.DR PO SCH ×2 (10:19→21:40)
[2021-11-05] MEDS: NICOTINE 7 MG/24 HOURS TOPICAL PATCH TD SCH (10:19)
[2021-11-05] MEDS: PRENATAL VITAMINS W/ FOLIC ACID TABLET (FP) PO SCH (10:19)
[2021-11-05] MEDS: GABAPENTIN 400 MG CAPSULE PO SCH (10:19)
[2021-11-05] MEDS: NICOTINE 10 MG CARTRIDGE (INHALER) IH PRN (16:04)
[2021-11-05] MEDS: THIAMINE HCL 100 MG TABLET (FP) PO SCH (21:40)
[2021-11-05] MEDS: SUVOREXANT 20 MG TABLET PO PRN (21:41)
[2021-11-06] MEDS: NICOTINE 7 MG/24 HOURS TOPICAL PATCH TD SCH (10:03)
[2021-11-06] MEDS: PRENATAL VITAMINS W/ FOLIC ACID TABLET (FP) PO SCH (10:03)
[2021-11-06] MEDS: GABAPENTIN 400 MG CAPSULE PO SCH (10:03)
[2021-11-06] MEDS: DICLOFENAC SODIUM 75 MG TABLET.DR PO SCH ×2 (10:03→21:08)
[2021-11-06] MEDS: SUVOREXANT 20 MG TABLET PO PRN (21:08)
[2021-11-06] MEDS: THIAMINE HCL 100 MG TABLET (FP) PO SCH (21:08)
[2021-11-06] MEDS: hydrOXYzine PAMOATE 25 MG CAPSULE (FP) PO PRN (21:09)
[2021-11-06] MEDS: NICOTINE 10 MG CARTRIDGE (INHALER) IH PRN (22:15)
[2021-11-07 00:06] LABS: SARS-CoV-2 NAA Not Detected (Not Detected)
[2021-11-07] MEDS: GABAPENTIN 400 MG CAPSULE PO SCH (10:37)
[2021-11-07] MEDS: PRENATAL VITAMINS W/ FOLIC ACID TABLET (FP) PO SCH (10:37)
[2021-11-07] MEDS: DICLOFENAC SODIUM 75 MG TABLET.DR PO SCH ×2 (10:38→21:19)
[2021-11-07] MEDS: NICOTINE 7 MG/24 HOURS TOPICAL PATCH TD SCH (10:38)
[2021-11-07] MEDS: NICOTINE 10 MG CARTRIDGE (INHALER) IH PRN (14:23)
[2021-11-07] MEDS: hydrOXYzine PAMOATE 25 MG CAPSULE (FP) PO PRN (16:47)
[2021-11-07] MEDS: THIAMINE HCL 100 MG TABLET (FP) PO SCH (21:19)
[2021-11-07] MEDS: SUVOREXANT 20 MG TABLET PO PRN (21:20)
[2021-11-08] MEDS: PRENATAL VITAMINS W/ FOLIC ACID TABLET (FP) PO SCH (09:58)
[2021-11-08] MEDS: GABAPENTIN 400 MG CAPSULE PO SCH (09:58)
[2021-11-08] MEDS: NICOTINE 7 MG/24 HOURS TOPICAL PATCH TD SCH (09:58)
[2021-11-08] MEDS: DICLOFENAC SODIUM 75 MG TABLET.DR PO SCH ×2 (09:59→23:26)
[2021-11-08] MEDS: SUVOREXANT 20 MG TABLET PO PRN (21:08)
[2021-11-08] MEDS: THIAMINE HCL 100 MG TABLET (FP) PO SCH (21:08)
[2021-11-09] MEDS: NICOTINE 10 MG CARTRIDGE (INHALER) IH PRN (08:10)
[2021-11-09] MEDS: GABAPENTIN 400 MG CAPSULE PO SCH (10:26)
[2021-11-09] MEDS: NICOTINE 7 MG/24 HOURS TOPICAL PATCH TD SCH (10:26)
[2021-11-09] MEDS: PRENATAL VITAMINS W/ FOLIC ACID TABLET (FP) PO SCH (10:26)
[2021-11-09] MEDS: DICLOFENAC SODIUM 75 MG TABLET.DR PO SCH ×2 (10:26→21:11)
[2021-11-09] MEDS: hydrOXYzine PAMOATE 25 MG CAPSULE (FP) PO PRN (14:34)
[2021-11-09] MEDS: SUVOREXANT 20 MG TABLET PO PRN (21:10)
[2021-11-09] MEDS: THIAMINE HCL 100 MG TABLET (FP) PO SCH (21:10)
[2021-11-10] MEDS: NICOTINE 10 MG CARTRIDGE (INHALER) IH PRN (08:24)
[2021-11-10] MEDS: DICLOFENAC SODIUM 75 MG TABLET.DR PO SCH ×2 (09:52→21:22)
[2021-11-10] MEDS: NICOTINE 7 MG/24 HOURS TOPICAL PATCH TD SCH (09:52)
[2021-11-10] MEDS: PRENATAL VITAMINS W/ FOLIC ACID TABLET (FP) PO SCH (09:52)
[2021-11-10] MEDS: GABAPENTIN 400 MG CAPSULE PO SCH (09:53)
[2021-11-10] MEDS: SUVOREXANT 20 MG TABLET PO PRN (21:21)
[2021-11-10] MEDS: THIAMINE HCL 100 MG TABLET (FP) PO SCH (21:22)
[2021-11-10] MEDS: hydrOXYzine PAMOATE 25 MG CAPSULE (FP) PO PRN (21:22)
[2021-11-10] MEDS ORDERED: SUVOREXANT 20 MG TABLET PO PRN (22:00)
[2021-11-11] MEDS: NICOTINE 10 MG CARTRIDGE (INHALER) IH PRN (08:50)
[2021-11-11] MEDS: GABAPENTIN 400 MG CAPSULE PO SCH (10:32)
[2021-11-11] MEDS: PRENATAL VITAMINS W/ FOLIC ACID TABLET (FP) PO SCH (10:32)
[2021-11-11] MEDS: NICOTINE 7 MG/24 HOURS TOPICAL PATCH TD SCH (10:33)
[2021-11-11] MEDS: DICLOFENAC SODIUM 75 MG TABLET.DR PO SCH ×2 (10:33→21:05)
[2021-11-11] MEDS: THIAMINE HCL 100 MG TABLET (FP) PO SCH (21:05)
[2021-11-12] MEDS: GABAPENTIN 400 MG CAPSULE PO SCH (09:47)
[2021-11-12] MEDS: PRENATAL VITAMINS W/ FOLIC ACID TABLET (FP) PO SCH (09:48)
[2021-11-12] MEDS: TETRAHYDROZOLINE HCL EYE DROPS OD PRN (09:49)
[2021-11-12] MEDS: DICLOFENAC SODIUM 75 MG TABLET.DR PO SCH ×2 (10:08→21:29)
[2021-11-12] MEDS: NICOTINE 7 MG/24 HOURS TOPICAL PATCH TD SCH (10:08)
[2021-11-12] MEDS: NICOTINE 10 MG CARTRIDGE (INHALER) IH PRN (14:59)
[2021-11-12] MEDS: THIAMINE HCL 100 MG TABLET (FP) PO SCH (21:30)
[2021-11-12] MEDS: SUVOREXANT 20 MG TABLET PO PRN (21:30)
[2021-11-13] MEDS: GABAPENTIN 400 MG CAPSULE PO SCH (10:43)
[2021-11-13] MEDS: PRENATAL VITAMINS W/ FOLIC ACID TABLET (FP) PO SCH (10:43)
[2021-11-13] MEDS: DICLOFENAC SODIUM 75 MG TABLET.DR PO SCH ×2 (10:43→21:12)
[2021-11-13] MEDS: NICOTINE 7 MG/24 HOURS TOPICAL PATCH TD SCH (10:43)
[2021-11-13] MEDS: hydrOXYzine PAMOATE 25 MG CAPSULE (FP) PO PRN ×2 (14:17→16:38)
[2021-11-13] MEDS: NICOTINE 10 MG CARTRIDGE (INHALER) IH PRN (16:39)
[2021-11-13] MEDS: THIAMINE HCL 100 MG TABLET (FP) PO SCH (21:12)
[2021-11-13] MEDS: SUVOREXANT 20 MG TABLET PO PRN (21:13)
[2021-11-14] MEDS: NICOTINE 10 MG CARTRIDGE (INHALER) IH PRN ×2 (08:46→19:12)
[2021-11-14] MEDS: TETRAHYDROZOLINE HCL EYE DROPS OD PRN (08:46)
[2021-11-14] MEDS: GABAPENTIN 400 MG CAPSULE PO SCH (09:44)
[2021-11-14] MEDS: NICOTINE 7 MG/24 HOURS TOPICAL PATCH TD SCH (09:44)
[2021-11-14] MEDS: DICLOFENAC SODIUM 75 MG TABLET.DR PO SCH ×2 (09:44→21:00)
[2021-11-14] MEDS: PRENATAL VITAMINS W/ FOLIC ACID TABLET (FP) PO SCH (09:44)
[2021-11-14] MEDS: THIAMINE HCL 100 MG TABLET (FP) PO SCH (21:00)
[2021-11-14] MEDS: SUVOREXANT 20 MG TABLET PO PRN (21:00)
[2021-11-14] MEDS: hydrOXYzine PAMOATE 25 MG CAPSULE (FP) PO PRN (21:02)
[2021-11-15] MEDS: NICOTINE 10 MG CARTRIDGE (INHALER) IH PRN ×2 (08:53→17:46)
[2021-11-15] MEDS: GABAPENTIN 400 MG CAPSULE PO SCH (10:01)
[2021-11-15] MEDS: PRENATAL VITAMINS W/ FOLIC ACID TABLET (FP) PO SCH (10:01)
[2021-11-15] MEDS: DICLOFENAC SODIUM 75 MG TABLET.DR PO SCH ×2 (10:02→21:21)
[2021-11-15] MEDS: NICOTINE 7 MG/24 HOURS TOPICAL PATCH TD SCH (10:02)
[2021-11-15] MEDS: SUVOREXANT 10 MG TABLET PO PRN (21:20)
[2021-11-15] MEDS: THIAMINE HCL 100 MG TABLET (FP) PO SCH (21:21)
[2021-11-16] MEDS: GABAPENTIN 400 MG CAPSULE PO SCH (09:42)
[2021-11-16] MEDS: PRENATAL VITAMINS W/ FOLIC ACID TABLET (FP) PO SCH (09:42)
[2021-11-16] MEDS: DICLOFENAC SODIUM 75 MG TABLET.DR PO SCH ×2 (09:42→21:18)
[2021-11-16] MEDS: NICOTINE 7 MG/24 HOURS TOPICAL PATCH TD SCH (09:42)
[2021-11-16] MEDS: DOXYCYCLINE HYCLATE 100 MG TABLET PO SCH ×2 (11:21→17:34)
[2021-11-16] MEDS: NICOTINE 10 MG CARTRIDGE (INHALER) IH PRN ×2 (13:37→18:00)
[2021-11-16] MEDS: SUVOREXANT 10 MG TABLET PO PRN (21:17)
[2021-11-16] MEDS: THIAMINE HCL 100 MG TABLET (FP) PO SCH (21:17)
[2021-11-17] MEDS: PRENATAL VITAMINS W/ FOLIC ACID TABLET (FP) PO SCH (10:19)
[2021-11-17] MEDS: GABAPENTIN 400 MG CAPSULE PO SCH (10:20)
[2021-11-17] MEDS: DICLOFENAC SODIUM 75 MG TABLET.DR PO SCH ×2 (10:20→21:23)
[2021-11-17] MEDS: DOXYCYCLINE HYCLATE 100 MG TABLET PO SCH ×2 (10:20→17:45)
[2021-11-17] MEDS: NICOTINE 10 MG CARTRIDGE (INHALER) IH PRN ×2 (10:21→16:46)
[2021-11-17] MEDS: NICOTINE 7 MG/24 HOURS TOPICAL PATCH TD SCH (10:22)
[2021-11-17] MEDS: SUVOREXANT 10 MG TABLET PO PRN (21:22)
[2021-11-17] MEDS: THIAMINE HCL 100 MG TABLET (FP) PO SCH (21:23)
[2021-11-18] MEDS: NICOTINE 7 MG/24 HOURS TOPICAL PATCH TD SCH (10:00)
[2021-11-18] MEDS: GABAPENTIN 400 MG CAPSULE PO SCH (10:01)
[2021-11-18] MEDS: DOXYCYCLINE HYCLATE 100 MG TABLET PO SCH ×2 (10:01→17:52)
[2021-11-18] MEDS: PRENATAL VITAMINS W/ FOLIC ACID TABLET (FP) PO SCH (10:01)
[2021-11-18] MEDS: DICLOFENAC SODIUM 75 MG TABLET.DR PO SCH ×2 (10:02→21:15)
[2021-11-18] MEDS: NICOTINE 10 MG CARTRIDGE (INHALER) IH PRN ×2 (10:03→15:56)
[2021-11-18] MEDS: THIAMINE HCL 100 MG TABLET (FP) PO SCH (21:15)
[2021-11-18] MEDS: SUVOREXANT 10 MG TABLET PO PRN (21:15)
[2021-11-19] MEDS: NICOTINE 7 MG/24 HOURS TOPICAL PATCH TD SCH (10:37)
[2021-11-19] MEDS: NICOTINE 10 MG CARTRIDGE (INHALER) IH PRN ×2 (10:37→21:02)
[2021-11-19] MEDS: PRENATAL VITAMINS W/ FOLIC ACID TABLET (FP) PO SCH (10:37)
[2021-11-19] MEDS: GABAPENTIN 400 MG CAPSULE PO SCH (10:38)
[2021-11-19] MEDS: DOXYCYCLINE HYCLATE 100 MG TABLET PO SCH ×2 (10:38→17:24)
[2021-11-19] MEDS: DICLOFENAC SODIUM 75 MG TABLET.DR PO SCH ×2 (10:39→21:01)
[2021-11-19] MEDS: SUVOREXANT 20 MG TABLET PO PRN (21:01)
[2021-11-19] MEDS: THIAMINE HCL 100 MG TABLET (FP) PO SCH (21:01)
[2021-11-20] MEDS: HYDROCORTISONE 0.5% TOPICAL CREAM 30 GM TUBE TP PRN (07:11)
[2021-11-20] MEDS: NICOTINE 10 MG CARTRIDGE (INHALER) IH PRN (07:24)
[2021-11-20] MEDS: DOXYCYCLINE HYCLATE 100 MG TABLET PO SCH ×2 (09:40→22:51)
[2021-11-20] MEDS: PRENATAL VITAMINS W/ FOLIC ACID TABLET (FP) PO SCH (09:40)
[2021-11-20] MEDS: GABAPENTIN 400 MG CAPSULE PO SCH (09:40)
[2021-11-20] MEDS: DICLOFENAC SODIUM 75 MG TABLET.DR PO SCH ×2 (09:41→23:56)
[2021-11-20] MEDS: NICOTINE 7 MG/24 HOURS TOPICAL PATCH TD SCH (09:41)
[2021-11-20] MEDS: SUVOREXANT 20 MG TABLET PO PRN (23:56)
[2021-11-20] MEDS: THIAMINE HCL 100 MG TABLET (FP) PO SCH (23:56)
[2021-11-21] MEDS: SULFAMETHOXAZOLE/TRIMETHOPRIM 400MG/80MG S.S. TABLET PO SCH ×3 (01:48→21:10)
[2021-11-21] MEDS: PRENATAL VITAMINS W/ FOLIC ACID TABLET (FP) PO SCH (10:14)
[2021-11-21] MEDS: NICOTINE 7 MG/24 HOURS TOPICAL PATCH TD SCH (10:15)
[2021-11-21] MEDS: GABAPENTIN 400 MG CAPSULE PO SCH (10:15)
[2021-11-21] MEDS: HYDROCORTISONE 0.5% TOPICAL CREAM 30 GM TUBE TP PRN (10:16)
[2021-11-21] MEDS: DICLOFENAC SODIUM 75 MG TABLET.DR PO SCH ×2 (10:16→21:11)
[2021-11-21] MEDS: NICOTINE 10 MG CARTRIDGE (INHALER) IH PRN ×2 (13:05→21:12)
[2021-11-21] MEDS: THIAMINE HCL 100 MG TABLET (FP) PO SCH (21:11)
[2021-11-22] MEDS: NICOTINE 10 MG CARTRIDGE (INHALER) IH PRN ×3 (07:58→22:32)
[2021-11-22] MEDS: GABAPENTIN 400 MG CAPSULE PO SCH (09:38)
[2021-11-22] MEDS: PRENATAL VITAMINS W/ FOLIC ACID TABLET (FP) PO SCH (09:39)
[2021-11-22] MEDS: NICOTINE 7 MG/24 HOURS TOPICAL PATCH TD SCH (09:39)
[2021-11-22] MEDS: TETRAHYDROZOLINE HCL EYE DROPS OD PRN (09:40)
[2021-11-22] MEDS: DICLOFENAC SODIUM 75 MG TABLET.DR PO SCH ×2 (09:52→21:18)
[2021-11-22] MEDS: SULFAMETHOXAZOLE/TRIMETHOPRIM 400MG/80MG S.S. TABLET PO SCH ×2 (09:52→21:01)
[2021-11-22] MEDS: THIAMINE HCL 100 MG TABLET (FP) PO SCH (21:03)
[2021-11-22] MEDS ORDERED: SUVOREXANT 20 MG TABLET PO PRN (22:00)
[2021-11-23] MEDS: NICOTINE 10 MG CARTRIDGE (INHALER) IH PRN ×2 (05:58→10:14)
[2021-11-23 07:01] VITALS: BP 134/87; PULSE 78; TEMP 97.9
[2021-11-23] MEDS: PRENATAL VITAMINS W/ FOLIC ACID TABLET (FP) PO SCH (09:28)
[2021-11-23] MEDS: GABAPENTIN 400 MG CAPSULE PO SCH (09:28)
[2021-11-23] MEDS: NICOTINE 7 MG/24 HOURS TOPICAL PATCH TD SCH (10:12)
[2021-11-23] MEDS: DICLOFENAC SODIUM 75 MG TABLET.DR PO SCH (10:12)
[2021-11-23] MEDS: SULFAMETHOXAZOLE/TRIMETHOPRIM 400MG/80MG S.S. TABLET PO SCH (10:13)
== END 2021-11-23 10:15 | disposition home or self-care (01) | DRG 772 ==
LOC: YASAS 21:03 → Y3W 11-02 12:24
PROVIDERS: ADMIT Allergy & Immunology; ATTEND Psychiatry & Neurology Pain Medicine
PROC: HZ42ZZZ Group Counseling for Substance Abuse Treatment, Cognitive-Behavioral (ICD-10-PCS; principal; 2021-11-02)
DX: F10.20 Alcohol dependence, uncomplicated (principal); F14.20 Cocaine dependence, uncomplicated; F12.20 Cannabis dependence, uncomplicated; F17.210 Nicotine dependence, cigarettes, uncomplicated; F19.282 Other psychoactive substance dependence with psychoactive substance-induced sleep disorder; F19.24 Other psychoactive substance dependence with psychoactive substance-induced mood disorder; G51.0 Bell's palsy; I83.93 Asymptomatic varicose veins of bilateral lower extremities; M27.2 Inflammatory conditions of jaws; M51.26 Other intervertebral disc displacement, lumbar region; G89.29 Other chronic pain
CPT/HCPCS: C9803-CS; U0003; U0005

== ENCOUNTER 2021-11-20 16:41 | Emergency (ER) | payer OTHER ==
[2021-11-20 17:13] VITALS: BP 123/79; PULSE 72; TEMP 97.9; BMI 30.4
== END 2021-11-20 18:50 | disposition home or self-care (01) ==
LOC: JERFT 16:41
PROC: 0H91XZZ Drainage of Face Skin, External Approach (ICD-10-PCS; principal; 2021-11-20)
DX: L02.01 Cutaneous abscess of face (principal)
CPT/HCPCS: 87070; 87076; 87205; 99282-25

== ENCOUNTER 2022-01-07 14:23 | Inpatient (IN) | payer OTHER ==
[2022-01-07 15:53] VITALS: BMI 28.5
[2022-01-07] MEDS ORDERED: IBUPROFEN 400 MG TABLET (FP) PO PRN (17:02)
[2022-01-07] MEDS ORDERED: NICOTINE POLACRILEX 2 MG GUM BUC PRN (17:02)
[2022-01-07] MEDS ORDERED: DICYCLOMINE HCL 10 MG CAPSULE PO PRN (17:02)
[2022-01-07] MEDS ORDERED: MAG HYDROX/AL HYDROX/SIMETH 30 ML UNIT-DOSE CUP PO PRN (17:02)
[2022-01-07] MEDS ORDERED: MAGNESIUM CITRATE 300 ML BOTTLE PO PRN (17:02)
[2022-01-07] MEDS ORDERED: MAGNESIUM HYDROX 2400MG/30ML ORAL SUSPENSION 30 ML CUP PO PRN (17:02)
[2022-01-07] MEDS ORDERED: chlordiazePOXIDE HCL 25 MG CAPSULE PO PRN (17:02)
[2022-01-07] MEDS ORDERED: IBUPROFEN 600 MG TABLET (FP) PO PRN (17:02)
[2022-01-07] MEDS ORDERED: LOPERAMIDE HCL 2 MG CAPSULE PO PRN (17:02)
[2022-01-07] MEDS ORDERED: ACETAMINOPHEN 325 MG TABLET (FP) PO PRN (17:02)
[2022-01-07] MEDS ORDERED: BISMUTH SUBSALICYLATE 524 MG/30 ML PO PRN (17:02)
[2022-01-07] MEDS ORDERED: BENZOCAINE/MENTHOL (CHLORASEPTIC ) LOZENGE MM PRN (17:02)
[2022-01-07] MEDS ORDERED: ONDANSETRON *ODT* 4 MG TABLET SL PRN (17:02)
[2022-01-07] MEDS: hydrOXYzine PAMOATE 25 MG CAPSULE (FP) PO SCH ×2 (20:09→22:52)
[2022-01-07] MEDS ORDERED: MELATONIN 5 MG TABLETS PO SCH (22:00)
[2022-01-07] MEDS: GABAPENTIN 300 MG CAPSULE PO SCH (22:52)
[2022-01-07] MEDS: THIAMINE HCL 100 MG TABLET (FP) PO SCH (22:52)
[2022-01-07] MEDS: chlordiazePOXIDE HCL 25 MG CAPSULE PO SCH (22:52)
[2022-01-08] MEDS: GABAPENTIN 300 MG CAPSULE PO SCH (05:37)
[2022-01-08] MEDS: hydrOXYzine PAMOATE 25 MG CAPSULE (FP) PO SCH ×5 (05:37→22:19)
[2022-01-08] MEDS: chlordiazePOXIDE HCL 25 MG CAPSULE PO SCH ×4 (05:37→23:21)
[2022-01-08] MEDS: PRENATAL VITAMINS W/ FOLIC ACID TABLET (FP) PO SCH (10:37)
[2022-01-08] MEDS: NICOTINE 7 MG/24 HOURS TOPICAL PATCH TD SCH (10:37)
[2022-01-08] MEDS: METHOCARBAMOL 500 MG TABLET PO PRN (10:37)
[2022-01-08] MEDS ORDERED: GABAPENTIN 400 MG CAPSULE PO ONE (12:15)
[2022-01-08 12:28] LABS: HEMATOCRIT 49.4 % (35.4-49); HEMOGLOBIN 16.3 GM/dL (11.7-16.9); MCH 29.7 pg (25.7-33.7); MEAN CELL VOLUME 90.1 fl (80-96); MEAN PLT VOLUME 9.3 fl (7.5-11.1); PLATELET COUNT 277 10^3/uL (134-434); RBC 5.48 M/mm3 (4.00-5.60); RDW 14.7 % (11.9-15.9)
[2022-01-08 12:44] LABS: ALBUMIN 3.3 g/dl (3.4-5.0); CALCIUM 8.9 mg/dL (8.5-10.1)
[2022-01-08 12:47] LABS: CREATININE 1.2 mg/dL (0.55-1.3)
[2022-01-08 12:49] LABS: BILIRUBIN,TOTAL 0.3 mg/dL (0.2-1); TOT PROT 6.3 g/dl (6.4-8.2)
[2022-01-08] MEDS: SUVOREXANT 10 MG TABLET PO PRN (22:19)
[2022-01-08] MEDS: THIAMINE HCL 100 MG TABLET (FP) PO SCH (22:19)
[2022-01-08] MEDS: GABAPENTIN 400 MG CAPSULE PO SCH (22:19)
[2022-01-09] MEDS: hydrOXYzine PAMOATE 25 MG CAPSULE (FP) PO SCH ×5 (05:07→21:53)
[2022-01-09] MEDS: chlordiazePOXIDE HCL 25 MG CAPSULE PO SCH ×4 (05:07→21:25)
[2022-01-09] MEDS: PRENATAL VITAMINS W/ FOLIC ACID TABLET (FP) PO SCH (10:14)
[2022-01-09] MEDS: METHOCARBAMOL 500 MG TABLET PO PRN ×2 (10:14→18:40)
[2022-01-09] MEDS: NICOTINE 7 MG/24 HOURS TOPICAL PATCH TD SCH (10:14)
[2022-01-09] MEDS: GABAPENTIN 400 MG CAPSULE PO SCH ×2 (10:14→21:53)
[2022-01-09] MEDS: DICLOFENAC SODIUM 75 MG TABLET.DR PO SCH ×4 (10:15→23:20)
[2022-01-09] MEDS: ACETAMINOPHEN 325 MG TABLET (FP) PO PRN (18:41)
[2022-01-09] MEDS: THIAMINE HCL 100 MG TABLET (FP) PO SCH (21:53)
[2022-01-09] MEDS: SUVOREXANT 10 MG TABLET PO PRN (21:55)
[2022-01-10] MEDS ORDERED: chlordiazePOXIDE HCL 10 MG CAPSULE PO PRN
[2022-01-10] MEDS: hydrOXYzine PAMOATE 25 MG CAPSULE (FP) PO SCH ×5 (05:42→22:37)
[2022-01-10] MEDS: chlordiazePOXIDE HCL 10 MG CAPSULE PO SCH ×4 (05:44→22:37)
[2022-01-10] MEDS: GABAPENTIN 400 MG CAPSULE PO SCH ×2 (10:07→22:37)
[2022-01-10] MEDS: NICOTINE 7 MG/24 HOURS TOPICAL PATCH TD SCH (10:07)
[2022-01-10] MEDS: PRENATAL VITAMINS W/ FOLIC ACID TABLET (FP) PO SCH (10:07)
[2022-01-10] MEDS: DICLOFENAC SODIUM 75 MG TABLET.DR PO SCH ×2 (10:07→22:37)
[2022-01-10] MEDS: METHOCARBAMOL 500 MG TABLET PO PRN (17:56)
[2022-01-10] MEDS: THIAMINE HCL 100 MG TABLET (FP) PO SCH (22:37)
[2022-01-10] MEDS: SUVOREXANT 10 MG TABLET PO PRN (22:38)
[2022-01-11] MEDS: hydrOXYzine PAMOATE 25 MG CAPSULE (FP) PO SCH ×4 (06:00→17:27)
[2022-01-11] MEDS: chlordiazePOXIDE HCL 10 MG CAPSULE PO SCH ×2 (06:00→17:27)
[2022-01-11] MEDS: METHOCARBAMOL 500 MG TABLET PO PRN (06:51)
[2022-01-11] MEDS ORDERED: NICOTINE 10 MG CARTRIDGE (INHALER) IH SCH (10:00)
[2022-01-11] MEDS: DICLOFENAC SODIUM 75 MG TABLET.DR PO SCH (10:28)
[2022-01-11] MEDS: PRENATAL VITAMINS W/ FOLIC ACID TABLET (FP) PO SCH (10:28)
[2022-01-11] MEDS: GABAPENTIN 400 MG CAPSULE PO SCH (10:28)
[2022-01-11] MEDS: ACETAMINOPHEN 325 MG TABLET (FP) PO PRN (17:28)
[2022-01-11 17:56] VITALS: BP 122/82; PULSE 76; RESP 18; TEMP 97.5
[2022-01-12] MEDS ORDERED: chlordiazePOXIDE HCL 10 MG CAPSULE PO ONE (05:00)
== END 2022-01-11 20:48 | disposition left against medical advice (07) | DRG 770 ==
LOC: YASAS 14:23 → Y6N 17:06
PROVIDERS: ADMIT Allergy & Immunology; ATTEND Surgery
PROC: HZ2ZZZZ Detoxification Services for Substance Abuse Treatment (ICD-10-PCS; principal; 2022-01-07)
DX: F10.230 Alcohol dependence with withdrawal, uncomplicated (principal); F14.20 Cocaine dependence, uncomplicated; F12.20 Cannabis dependence, uncomplicated; F17.210 Nicotine dependence, cigarettes, uncomplicated; F19.282 Other psychoactive substance dependence with psychoactive substance-induced sleep disorder; F19.24 Other psychoactive substance dependence with psychoactive substance-induced mood disorder; I83.813 Varicose veins of bilateral lower extremities with pain; M79.606 Pain in leg, unspecified; Z99.89 Dependence on other enabling machines and devices; Z86.69 Personal history of other diseases of the nervous system and sense organs; Z56.0 Unemployment, unspecified; Z59.00 Homelessness unspecified
CPT/HCPCS: 36415; 80053; 85027; 86780; C9803-CS; U0003; U0005

== ENCOUNTER 2022-02-01 11:19 | Inpatient (IN) | payer OTHER ==
[2022-02-01 11:54] VITALS: BMI 29.9
[2022-02-01] MEDS ORDERED: DICYCLOMINE HCL 10 MG CAPSULE PO PRN (12:57)
[2022-02-01] MEDS ORDERED: MAGNESIUM CITRATE 300 ML BOTTLE PO PRN (12:57)
[2022-02-01] MEDS ORDERED: MAG HYDROX/AL HYDROX/SIMETH 30 ML UNIT-DOSE CUP PO PRN (12:57)
[2022-02-01] MEDS ORDERED: MAGNESIUM HYDROX 2400MG/30ML ORAL SUSPENSION 30 ML CUP PO PRN (12:57)
[2022-02-01] MEDS ORDERED: ONDANSETRON *ODT* 4 MG TABLET SL PRN (12:57)
[2022-02-01] MEDS ORDERED: IBUPROFEN 400 MG TABLET (FP) PO PRN (12:57)
[2022-02-01] MEDS ORDERED: BENZOCAINE/MENTHOL (CHLORASEPTIC ) LOZENGE MM PRN (12:57)
[2022-02-01] MEDS ORDERED: LOPERAMIDE HCL 2 MG CAPSULE PO PRN (12:57)
[2022-02-01] MEDS ORDERED: ACETAMINOPHEN 325 MG TABLET (FP) PO PRN ×2 (12:57)
[2022-02-01] MEDS ORDERED: IBUPROFEN 600 MG TABLET (FP) PO PRN (12:57)
[2022-02-01] MEDS ORDERED: chlordiazePOXIDE HCL 25 MG CAPSULE PO PRN (12:57)
[2022-02-01] MEDS ORDERED: BISMUTH SUBSALICYLATE 524 MG/30 ML PO PRN (12:57)
[2022-02-01] MEDS: hydrOXYzine PAMOATE 25 MG CAPSULE (FP) PO SCH ×3 (13:43→22:30)
[2022-02-01] MEDS: PRENATAL VITAMINS W/ FOLIC ACID TABLET (FP) PO SCH (13:43)
[2022-02-01] MEDS: METHOCARBAMOL 500 MG TABLET PO PRN (13:43)
[2022-02-01] MEDS: chlordiazePOXIDE HCL 25 MG CAPSULE PO SCH ×2 (18:15→22:30)
[2022-02-01] MEDS ORDERED: MELATONIN 5 MG TABLETS PO SCH (22:00)
[2022-02-01] MEDS: THIAMINE HCL 100 MG TABLET (FP) PO SCH (22:29)
[2022-02-02] MEDS: chlordiazePOXIDE HCL 25 MG CAPSULE PO SCH ×4 (04:59→22:23)
[2022-02-02] MEDS: hydrOXYzine PAMOATE 25 MG CAPSULE (FP) PO SCH ×5 (04:59→22:23)
[2022-02-02] MEDS: METHOCARBAMOL 500 MG TABLET PO PRN (10:23)
[2022-02-02] MEDS: PRENATAL VITAMINS W/ FOLIC ACID TABLET (FP) PO SCH (10:24)
[2022-02-02] MEDS: GABAPENTIN 400 MG CAPSULE PO SCH (12:03)
[2022-02-02] MEDS: DICLOFENAC SODIUM 75 MG TABLET.DR PO SCH ×2 (12:03→22:23)
[2022-02-02 12:34] LABS: HEMOGLOBIN 15.3 GM/dL (11.7-16.9); MCH 29.8 pg (25.7-33.7); MCHC 33.2 g/dl (32.0-35.9); MEAN CELL VOLUME 89.7 fl (80-96); MEAN PLT VOLUME 9.4 fl (7.5-11.1); PLATELET COUNT 238 10^3/uL (134-434); RBC 5.13 M/mm3 (4.00-5.60); RDW 14.6 % (11.9-15.9); WHITE BLOOD COUNT 3.3 K/mm3 (4.0-10.0)
[2022-02-02 12:38] LABS: CALCIUM 8.8 mg/dL (8.5-10.1)
[2022-02-02 12:39] LABS: ALBUMIN 3.1 g/dl (3.4-5.0); BLOOD UREA NITROGEN 11.6 mg/dL (7-18)
[2022-02-02 12:43] LABS: BILIRUBIN,TOTAL 0.7 mg/dL (0.2-1); TOT PROT 5.9 g/dl (6.4-8.2)
[2022-02-02] MEDS: SUVOREXANT 10 MG TABLET PO PRN (22:23)
[2022-02-02] MEDS: THIAMINE HCL 100 MG TABLET (FP) PO SCH (22:23)
[2022-02-03] MEDS: chlordiazePOXIDE HCL 25 MG CAPSULE PO SCH ×4 (05:19→22:16)
[2022-02-03] MEDS: hydrOXYzine PAMOATE 25 MG CAPSULE (FP) PO SCH ×6 (06:39→22:16)
[2022-02-03] MEDS: METHOCARBAMOL 500 MG TABLET PO PRN ×2 (10:20→18:12)
[2022-02-03] MEDS: DICLOFENAC SODIUM 75 MG TABLET.DR PO SCH ×2 (10:20→22:16)
[2022-02-03] MEDS: PRENATAL VITAMINS W/ FOLIC ACID TABLET (FP) PO SCH (10:20)
[2022-02-03] MEDS: GABAPENTIN 400 MG CAPSULE PO SCH (10:20)
[2022-02-03] MEDS: THIAMINE HCL 100 MG TABLET (FP) PO SCH (22:16)
[2022-02-03] MEDS: SUVOREXANT 10 MG TABLET PO PRN (22:19)
[2022-02-04] MEDS ORDERED: chlordiazePOXIDE HCL 10 MG CAPSULE PO PRN
[2022-02-04] MEDS: hydrOXYzine PAMOATE 25 MG CAPSULE (FP) PO SCH ×5 (05:09→22:11)
[2022-02-04] MEDS: chlordiazePOXIDE HCL 10 MG CAPSULE PO SCH ×4 (05:10→22:11)
[2022-02-04] MEDS: PRENATAL VITAMINS W/ FOLIC ACID TABLET (FP) PO SCH (10:24)
[2022-02-04] MEDS: METHOCARBAMOL 500 MG TABLET PO PRN (10:24)
[2022-02-04] MEDS: GABAPENTIN 400 MG CAPSULE PO SCH (10:24)
[2022-02-04] MEDS: DICLOFENAC SODIUM 75 MG TABLET.DR PO SCH ×2 (10:24→22:12)
[2022-02-04] MEDS: SUVOREXANT 10 MG TABLET PO PRN (22:11)
[2022-02-04] MEDS: THIAMINE HCL 100 MG TABLET (FP) PO SCH (22:11)
[2022-02-05] MEDS: hydrOXYzine PAMOATE 25 MG CAPSULE (FP) PO SCH ×5 (05:31→22:25)
[2022-02-05] MEDS: chlordiazePOXIDE HCL 10 MG CAPSULE PO SCH ×2 (05:31→17:44)
[2022-02-05] MEDS: PRENATAL VITAMINS W/ FOLIC ACID TABLET (FP) PO SCH (10:24)
[2022-02-05] MEDS: GABAPENTIN 400 MG CAPSULE PO SCH (10:24)
[2022-02-05] MEDS: METHOCARBAMOL 500 MG TABLET PO PRN (10:24)
[2022-02-05] MEDS: DICLOFENAC SODIUM 75 MG TABLET.DR PO SCH ×2 (10:25→22:25)
[2022-02-05] MEDS: NICOTINE 10 MG CARTRIDGE (INHALER) IH PRN ×2 (10:26→20:43)
[2022-02-05] MEDS: THIAMINE HCL 100 MG TABLET (FP) PO SCH (22:25)
[2022-02-05] MEDS ORDERED: SUVOREXANT 10 MG TABLET PO PRN (23:32)
[2022-02-05] MEDS ORDERED: hydrOXYzine PAMOATE 25 MG CAPSULE (FP) PO PRN (23:33)
[2022-02-06] MEDS ORDERED: chlordiazePOXIDE HCL 10 MG CAPSULE PO ONE (05:00)
[2022-02-06 09:37] VITALS: BP 146/99; PULSE 75; RESP 17; TEMP 97.9
[2022-02-06] MEDS: PRENATAL VITAMINS W/ FOLIC ACID TABLET (FP) PO SCH (11:11)
[2022-02-06] MEDS: DICLOFENAC SODIUM 75 MG TABLET.DR PO SCH (11:11)
[2022-02-06] MEDS: GABAPENTIN 400 MG CAPSULE PO SCH (11:11)
[2022-02-06] MEDS: NICOTINE 10 MG CARTRIDGE (INHALER) IH PRN (12:01)
[2022-02-06] MEDS ORDERED: SUVOREXANT 10 MG TABLET PO PRN (22:00)
== END 2022-02-06 13:15 | disposition home or self-care (01) | DRG 774 ==
LOC: YASAS 11:19 → SUATTDRO 11:19 → Y6N 12:46
PROVIDERS: ADMIT Allergy & Immunology; ATTEND Surgery
PROC: HZ2ZZZZ Detoxification Services for Substance Abuse Treatment (ICD-10-PCS; principal; 2022-02-01)
DX: F10.230 Alcohol dependence with withdrawal, uncomplicated (principal); F14.20 Cocaine dependence, uncomplicated; F12.20 Cannabis dependence, uncomplicated; F17.210 Nicotine dependence, cigarettes, uncomplicated; F19.282 Other psychoactive substance dependence with psychoactive substance-induced sleep disorder; F19.24 Other psychoactive substance dependence with psychoactive substance-induced mood disorder; F41.9 Anxiety disorder, unspecified; F32.A Depression, unspecified; I83.93 Asymptomatic varicose veins of bilateral lower extremities; M54.50 Low back pain, unspecified; G89.29 Other chronic pain; Z86.69 Personal history of other diseases of the nervous system and sense organs; Z99.89 Dependence on other enabling machines and devices; Z56.0 Unemployment, unspecified; Z59.00 Homelessness unspecified
CPT/HCPCS: 36415; 80053; 85027; 86780; C9803-CS; U0003; U0005

== ENCOUNTER 2022-02-06 13:33 | Inpatient (IN) | payer OTHER ==
[2022-02-06] MEDS ORDERED: MAG HYDROX/AL HYDROX/SIMETH 30 ML UNIT-DOSE CUP PO PRN (15:45)
[2022-02-06] MEDS ORDERED: ACETAMINOPHEN 325 MG TABLET (FP) PO PRN (15:45)
[2022-02-06] MEDS ORDERED: P-EPHED 60MG/TRIPROLIDI 2.5MG TABLET PO PRN (15:45)
[2022-02-06] MEDS ORDERED: guaiFENesin 200 MG/10 ML 10 ML UNIT-DOSE CUPS PO PRN (15:45)
[2022-02-06] MEDS ORDERED: LOPERAMIDE HCL 2 MG CAPSULE PO PRN (15:45)
[2022-02-06] MEDS ORDERED: MAGNESIUM CITRATE 300 ML BOTTLE PO PRN (15:45)
[2022-02-06] MEDS ORDERED: BENZOCAINE/MENTHOL (CHLORASEPTIC ) LOZENGE MM PRN (15:45)
[2022-02-06] MEDS ORDERED: MAGNESIUM HYDROX 2400MG/30ML ORAL SUSPENSION 30 ML CUP PO PRN (15:45)
[2022-02-06] MEDS: NICOTINE 10 MG CARTRIDGE (INHALER) IH PRN (18:07)
[2022-02-06] MEDS: MELATONIN 5 MG TABLETS PO SCH (21:43)
[2022-02-06] MEDS: THIAMINE HCL 100 MG TABLET (FP) PO SCH (21:43)
[2022-02-06] MEDS: DICLOFENAC SODIUM 75 MG TABLET.DR PO SCH (21:44)
[2022-02-06] MEDS: SUVOREXANT 15 MG TABLET PO PRN (21:46)
[2022-02-06] MEDS ORDERED: SUVOREXANT 10 MG TABLET PO PRN (22:00)
[2022-02-06] MEDS: ARTIFICIAL TEARS (POLYVINYL ALCOHOL) OPTH DROPS OD PRN (22:10)
[2022-02-07] MEDS: hydrOXYzine PAMOATE 25 MG CAPSULE (FP) PO PRN ×2 (06:28→14:25)
[2022-02-07] MEDS: ARTIFICIAL TEARS (POLYVINYL ALCOHOL) OPTH DROPS OD PRN ×2 (06:30→21:32)
[2022-02-07 07:31] VITALS: RESP 18
[2022-02-07] MEDS: GABAPENTIN 400 MG CAPSULE PO SCH (10:06)
[2022-02-07] MEDS: PRENATAL VITAMINS W/ FOLIC ACID TABLET (FP) PO SCH (10:06)
[2022-02-07] MEDS: NICOTINE 10 MG CARTRIDGE (INHALER) IH PRN ×2 (10:07→18:06)
[2022-02-07] MEDS: DICLOFENAC SODIUM 75 MG TABLET.DR PO SCH ×2 (10:07→21:32)
[2022-02-07] MEDS: NICOTINE 7 MG/24 HOURS TOPICAL PATCH TD SCH (10:07)
[2022-02-07] MEDS: MELATONIN 5 MG TABLETS PO SCH (21:32)
[2022-02-07] MEDS: THIAMINE HCL 100 MG TABLET (FP) PO SCH (21:32)
[2022-02-07] MEDS: SUVOREXANT 15 MG TABLET PO PRN (21:35)
[2022-02-08] MEDS: DICLOFENAC SODIUM 75 MG TABLET.DR PO SCH ×2 (09:58→22:15)
[2022-02-08] MEDS: GABAPENTIN 400 MG CAPSULE PO SCH (09:58)
[2022-02-08] MEDS: hydrOXYzine PAMOATE 25 MG CAPSULE (FP) PO PRN ×2 (09:59→14:33)
[2022-02-08] MEDS: PRENATAL VITAMINS W/ FOLIC ACID TABLET (FP) PO SCH (09:59)
[2022-02-08] MEDS: NICOTINE 7 MG/24 HOURS TOPICAL PATCH TD SCH (10:00)
[2022-02-08] MEDS: ARTIFICIAL TEARS (POLYVINYL ALCOHOL) OPTH DROPS OD PRN ×2 (10:01→21:39)
[2022-02-08] MEDS: NICOTINE 10 MG CARTRIDGE (INHALER) IH PRN (19:00)
[2022-02-08] MEDS: SUVOREXANT 15 MG TABLET PO PRN (21:36)
[2022-02-08] MEDS: MELATONIN 5 MG TABLETS PO SCH (21:37)
[2022-02-08] MEDS: THIAMINE HCL 100 MG TABLET (FP) PO SCH (21:37)
[2022-02-09] MEDS: NICOTINE 7 MG/24 HOURS TOPICAL PATCH TD SCH (09:43)
[2022-02-09] MEDS: PRENATAL VITAMINS W/ FOLIC ACID TABLET (FP) PO SCH (09:43)
[2022-02-09] MEDS: DICLOFENAC SODIUM 75 MG TABLET.DR PO SCH ×2 (09:44→21:01)
[2022-02-09] MEDS: GABAPENTIN 400 MG CAPSULE PO SCH (09:44)
[2022-02-09] MEDS: ARTIFICIAL TEARS (POLYVINYL ALCOHOL) OPTH DROPS OD PRN (09:45)
[2022-02-09] MEDS: hydrOXYzine PAMOATE 25 MG CAPSULE (FP) PO PRN ×2 (12:42→21:02)
[2022-02-09] MEDS: NICOTINE 10 MG CARTRIDGE (INHALER) IH PRN (16:56)
[2022-02-09] MEDS: MELATONIN 5 MG TABLETS PO SCH (21:01)
[2022-02-09] MEDS: THIAMINE HCL 100 MG TABLET (FP) PO SCH (21:01)
[2022-02-09] MEDS: SUVOREXANT 15 MG TABLET PO PRN (21:02)
[2022-02-10] MEDS: hydrOXYzine PAMOATE 25 MG CAPSULE (FP) PO PRN ×3 (06:11→18:56)
[2022-02-10] MEDS: ARTIFICIAL TEARS (POLYVINYL ALCOHOL) OPTH DROPS OD PRN (06:14)
[2022-02-10] MEDS: PRENATAL VITAMINS W/ FOLIC ACID TABLET (FP) PO SCH (09:56)
[2022-02-10] MEDS: DICLOFENAC SODIUM 75 MG TABLET.DR PO SCH ×2 (09:56→21:05)
[2022-02-10] MEDS: GABAPENTIN 400 MG CAPSULE PO SCH (09:56)
[2022-02-10] MEDS: NICOTINE 7 MG/24 HOURS TOPICAL PATCH TD SCH (09:56)
[2022-02-10] MEDS: NICOTINE 10 MG CARTRIDGE (INHALER) IH PRN (10:04)
[2022-02-10] MEDS: SUVOREXANT 15 MG TABLET PO PRN (21:05)
[2022-02-10] MEDS: MELATONIN 5 MG TABLETS PO SCH (21:05)
[2022-02-10] MEDS: THIAMINE HCL 100 MG TABLET (FP) PO SCH (21:05)
[2022-02-11] MEDS: hydrOXYzine PAMOATE 25 MG CAPSULE (FP) PO PRN ×2 (06:25→17:15)
[2022-02-11] MEDS: PRENATAL VITAMINS W/ FOLIC ACID TABLET (FP) PO SCH (09:40)
[2022-02-11] MEDS: GABAPENTIN 400 MG CAPSULE PO SCH (09:40)
[2022-02-11] MEDS: NICOTINE 7 MG/24 HOURS TOPICAL PATCH TD SCH (09:40)
[2022-02-11] MEDS: DICLOFENAC SODIUM 75 MG TABLET.DR PO SCH ×2 (09:41→21:21)
[2022-02-11] MEDS: NICOTINE 10 MG CARTRIDGE (INHALER) IH PRN ×2 (10:29→17:15)
[2022-02-11] MEDS: THIAMINE HCL 100 MG TABLET (FP) PO SCH (21:21)
[2022-02-11] MEDS: MELATONIN 5 MG TABLETS PO SCH (21:21)
[2022-02-11] MEDS: SUVOREXANT 15 MG TABLET PO PRN (21:22)
[2022-02-12] MEDS: GABAPENTIN 400 MG CAPSULE PO SCH (10:01)
[2022-02-12] MEDS: PRENATAL VITAMINS W/ FOLIC ACID TABLET (FP) PO SCH (10:01)
[2022-02-12] MEDS: DICLOFENAC SODIUM 75 MG TABLET.DR PO SCH ×2 (10:01→21:18)
[2022-02-12] MEDS: NICOTINE 10 MG CARTRIDGE (INHALER) IH PRN ×2 (10:02→18:56)
[2022-02-12] MEDS: NICOTINE 7 MG/24 HOURS TOPICAL PATCH TD SCH (10:02)
[2022-02-12] MEDS: hydrOXYzine PAMOATE 25 MG CAPSULE (FP) PO PRN ×2 (10:03→18:56)
[2022-02-12] MEDS: ARTIFICIAL TEARS (POLYVINYL ALCOHOL) OPTH DROPS OD PRN (10:04)
[2022-02-12] MEDS: THIAMINE HCL 100 MG TABLET (FP) PO SCH (21:17)
[2022-02-12] MEDS: MELATONIN 5 MG TABLETS PO SCH (21:17)
[2022-02-12] MEDS: SUVOREXANT 15 MG TABLET PO PRN (21:18)
[2022-02-13] MEDS: hydrOXYzine PAMOATE 25 MG CAPSULE (FP) PO PRN ×2 (06:05→13:51)
[2022-02-13] MEDS: NICOTINE 10 MG CARTRIDGE (INHALER) IH PRN ×3 (06:05→13:50)
[2022-02-13] MEDS: NICOTINE 7 MG/24 HOURS TOPICAL PATCH TD SCH (09:49)
[2022-02-13] MEDS: PRENATAL VITAMINS W/ FOLIC ACID TABLET (FP) PO SCH (09:49)
[2022-02-13] MEDS: DICLOFENAC SODIUM 75 MG TABLET.DR PO SCH ×2 (09:49→21:19)
[2022-02-13] MEDS: GABAPENTIN 400 MG CAPSULE PO SCH (09:49)
[2022-02-13] MEDS: ARTIFICIAL TEARS (POLYVINYL ALCOHOL) OPTH DROPS OD PRN (09:49)
[2022-02-13] MEDS: MELATONIN 5 MG TABLETS PO SCH (21:19)
[2022-02-13] MEDS: SUVOREXANT 15 MG TABLET PO PRN (21:19)
[2022-02-13] MEDS: THIAMINE HCL 100 MG TABLET (FP) PO SCH (21:19)
[2022-02-14] MEDS: IBUPROFEN 400 MG TABLET (FP) PO PRN (05:59)
[2022-02-14] MEDS: hydrOXYzine PAMOATE 25 MG CAPSULE (FP) PO PRN ×2 (06:00→16:53)
[2022-02-14] MEDS: GABAPENTIN 400 MG CAPSULE PO SCH (09:35)
[2022-02-14] MEDS: NICOTINE 7 MG/24 HOURS TOPICAL PATCH TD SCH (09:36)
[2022-02-14] MEDS: PRENATAL VITAMINS W/ FOLIC ACID TABLET (FP) PO SCH (09:36)
[2022-02-14] MEDS: DICLOFENAC SODIUM 75 MG TABLET.DR PO SCH ×2 (09:37→23:18)
[2022-02-14] MEDS: NICOTINE 10 MG CARTRIDGE (INHALER) IH PRN ×2 (10:26→16:51)
[2022-02-14] MEDS ORDERED: SUVOREXANT 15 MG TABLET PO ONE (23:05)
[2022-02-14] MEDS: MELATONIN 5 MG TABLETS PO SCH (23:17)
[2022-02-14] MEDS: THIAMINE HCL 100 MG TABLET (FP) PO SCH (23:18)
[2022-02-15] MEDS: ARTIFICIAL TEARS (POLYVINYL ALCOHOL) OPTH DROPS OD PRN ×2 (06:04→10:10)
[2022-02-15] MEDS: hydrOXYzine PAMOATE 25 MG CAPSULE (FP) PO PRN ×3 (06:05→21:02)
[2022-02-15] MEDS: PRENATAL VITAMINS W/ FOLIC ACID TABLET (FP) PO SCH (10:10)
[2022-02-15] MEDS: GABAPENTIN 400 MG CAPSULE PO SCH (10:10)
[2022-02-15] MEDS: DICLOFENAC SODIUM 75 MG TABLET.DR PO SCH ×2 (10:11→21:01)
[2022-02-15] MEDS: NICOTINE 7 MG/24 HOURS TOPICAL PATCH TD SCH (10:12)
[2022-02-15] MEDS: NICOTINE 10 MG CARTRIDGE (INHALER) IH PRN ×3 (10:12→21:02)
[2022-02-15] MEDS: THIAMINE HCL 100 MG TABLET (FP) PO SCH (21:01)
[2022-02-15] MEDS: MELATONIN 5 MG TABLETS PO SCH (21:01)
[2022-02-15] MEDS: SUVOREXANT 15 MG TABLET PO PRN (21:01)
[2022-02-16] MEDS: ARTIFICIAL TEARS (POLYVINYL ALCOHOL) OPTH DROPS OD PRN (09:59)
[2022-02-16] MEDS: NICOTINE 7 MG/24 HOURS TOPICAL PATCH TD SCH (09:59)
[2022-02-16] MEDS: PRENATAL VITAMINS W/ FOLIC ACID TABLET (FP) PO SCH (09:59)
[2022-02-16] MEDS: hydrOXYzine PAMOATE 25 MG CAPSULE (FP) PO PRN ×2 (10:00→20:00)
[2022-02-16] MEDS: GABAPENTIN 400 MG CAPSULE PO SCH (10:01)
[2022-02-16] MEDS: DICLOFENAC SODIUM 75 MG TABLET.DR PO SCH ×2 (10:01→21:04)
[2022-02-16] MEDS: NICOTINE 10 MG CARTRIDGE (INHALER) IH PRN ×3 (10:19→21:05)
[2022-02-16] MEDS: THIAMINE HCL 100 MG TABLET (FP) PO SCH (21:04)
[2022-02-16] MEDS: MELATONIN 5 MG TABLETS PO SCH (21:04)
[2022-02-16] MEDS: SUVOREXANT 15 MG TABLET PO PRN (21:04)
[2022-02-17] MEDS: NICOTINE 7 MG/24 HOURS TOPICAL PATCH TD SCH (10:25)
[2022-02-17] MEDS: NICOTINE 10 MG CARTRIDGE (INHALER) IH PRN ×2 (10:26→18:42)
[2022-02-17] MEDS: DICLOFENAC SODIUM 75 MG TABLET.DR PO SCH ×2 (10:26→21:07)
[2022-02-17] MEDS: PRENATAL VITAMINS W/ FOLIC ACID TABLET (FP) PO SCH (10:26)
[2022-02-17] MEDS: GABAPENTIN 400 MG CAPSULE PO SCH (10:26)
[2022-02-17] MEDS: hydrOXYzine PAMOATE 25 MG CAPSULE (FP) PO PRN ×2 (10:27→21:07)
[2022-02-17] MEDS: MELATONIN 5 MG TABLETS PO SCH (21:07)
[2022-02-17] MEDS: THIAMINE HCL 100 MG TABLET (FP) PO SCH (21:07)
[2022-02-17] MEDS: SUVOREXANT 15 MG TABLET PO PRN (21:08)
[2022-02-18] MEDS: NICOTINE 10 MG CARTRIDGE (INHALER) IH PRN ×3 (08:55→17:04)
[2022-02-18] MEDS: hydrOXYzine PAMOATE 25 MG CAPSULE (FP) PO PRN ×2 (08:55→18:57)
[2022-02-18] MEDS: DICLOFENAC SODIUM 75 MG TABLET.DR PO SCH ×2 (10:03→21:05)
[2022-02-18] MEDS: PRENATAL VITAMINS W/ FOLIC ACID TABLET (FP) PO SCH (10:03)
[2022-02-18] MEDS: GABAPENTIN 400 MG CAPSULE PO SCH (10:03)
[2022-02-18] MEDS: ARTIFICIAL TEARS (POLYVINYL ALCOHOL) OPTH DROPS OD PRN (10:04)
[2022-02-18] MEDS: NICOTINE 7 MG/24 HOURS TOPICAL PATCH TD SCH (10:04)
[2022-02-18] MEDS: THIAMINE HCL 100 MG TABLET (FP) PO SCH (21:05)
[2022-02-18] MEDS: SUVOREXANT 15 MG TABLET PO PRN (21:05)
[2022-02-18] MEDS: MELATONIN 5 MG TABLETS PO SCH (21:06)
[2022-02-19] MEDS: NICOTINE 10 MG CARTRIDGE (INHALER) IH PRN ×3 (07:30→21:06)
[2022-02-19] MEDS: hydrOXYzine PAMOATE 25 MG CAPSULE (FP) PO PRN ×3 (07:32→21:06)
[2022-02-19] MEDS: NICOTINE 7 MG/24 HOURS TOPICAL PATCH TD SCH (10:11)
[2022-02-19] MEDS: GABAPENTIN 400 MG CAPSULE PO SCH (10:13)
[2022-02-19] MEDS: PRENATAL VITAMINS W/ FOLIC ACID TABLET (FP) PO SCH (10:13)
[2022-02-19] MEDS: DICLOFENAC SODIUM 75 MG TABLET.DR PO SCH ×2 (10:13→21:05)
[2022-02-19] MEDS: MELATONIN 5 MG TABLETS PO SCH (21:05)
[2022-02-19] MEDS: THIAMINE HCL 100 MG TABLET (FP) PO SCH (21:06)
[2022-02-19] MEDS: SUVOREXANT 15 MG TABLET PO PRN (21:06)
[2022-02-20] MEDS: ARTIFICIAL TEARS (POLYVINYL ALCOHOL) OPTH DROPS OD PRN ×2 (06:33→10:25)
[2022-02-20] MEDS: NICOTINE 10 MG CARTRIDGE (INHALER) IH PRN ×4 (06:34→20:21)
[2022-02-20] MEDS: hydrOXYzine PAMOATE 25 MG CAPSULE (FP) PO PRN ×2 (06:34→21:30)
[2022-02-20] MEDS: GABAPENTIN 400 MG CAPSULE PO SCH (10:25)
[2022-02-20] MEDS: PRENATAL VITAMINS W/ FOLIC ACID TABLET (FP) PO SCH (10:25)
[2022-02-20] MEDS: NICOTINE 7 MG/24 HOURS TOPICAL PATCH TD SCH (10:25)
[2022-02-20] MEDS: DICLOFENAC SODIUM 75 MG TABLET.DR PO SCH ×2 (10:25→21:30)
[2022-02-20] MEDS: IBUPROFEN 400 MG TABLET (FP) PO PRN (13:32)
[2022-02-20] MEDS: THIAMINE HCL 100 MG TABLET (FP) PO SCH (21:30)
[2022-02-20] MEDS: MELATONIN 5 MG TABLETS PO SCH (21:30)
[2022-02-20] MEDS: SUVOREXANT 15 MG TABLET PO PRN (21:31)
[2022-02-21] MEDS: NICOTINE 10 MG CARTRIDGE (INHALER) IH PRN ×3 (08:30→21:49)
[2022-02-21] MEDS: NICOTINE 7 MG/24 HOURS TOPICAL PATCH TD SCH (10:28)
[2022-02-21] MEDS: GABAPENTIN 400 MG CAPSULE PO SCH (10:28)
[2022-02-21] MEDS: PRENATAL VITAMINS W/ FOLIC ACID TABLET (FP) PO SCH (10:28)
[2022-02-21] MEDS: DICLOFENAC SODIUM 75 MG TABLET.DR PO SCH ×2 (10:29→21:46)
[2022-02-21] MEDS: hydrOXYzine PAMOATE 25 MG CAPSULE (FP) PO PRN ×2 (10:29→16:32)
[2022-02-21] MEDS: ARTIFICIAL TEARS (POLYVINYL ALCOHOL) OPTH DROPS OD PRN (16:31)
[2022-02-21] MEDS: THIAMINE HCL 100 MG TABLET (FP) PO SCH (21:45)
[2022-02-21] MEDS: MELATONIN 5 MG TABLETS PO SCH (21:45)
[2022-02-21] MEDS: SUVOREXANT 5 MG TABLET PO PRN (21:47)
[2022-02-21] MEDS: IBUPROFEN 400 MG TABLET (FP) PO PRN (21:49)
[2022-02-22] MEDS: IBUPROFEN 400 MG TABLET (FP) PO PRN ×2 (06:03→12:41)
[2022-02-22] MEDS: hydrOXYzine PAMOATE 25 MG CAPSULE (FP) PO PRN ×2 (06:03→12:41)
[2022-02-22] MEDS: GABAPENTIN 400 MG CAPSULE PO SCH (09:02)
[2022-02-22] MEDS: DICLOFENAC SODIUM 75 MG TABLET.DR PO SCH ×2 (09:02→21:35)
[2022-02-22] MEDS: PRENATAL VITAMINS W/ FOLIC ACID TABLET (FP) PO SCH (09:03)
[2022-02-22] MEDS: NICOTINE 7 MG/24 HOURS TOPICAL PATCH TD SCH (09:03)
[2022-02-22] MEDS: NICOTINE 10 MG CARTRIDGE (INHALER) IH PRN ×2 (12:42→21:35)
[2022-02-22] MEDS: LIDOCAINE HCL 5% TOP OINTMENT 50 GM TUBE TP SCH (16:13)
[2022-02-22] MEDS: SUVOREXANT 5 MG TABLET PO PRN (21:33)
[2022-02-22] MEDS: MELATONIN 5 MG TABLETS PO SCH (21:35)
[2022-02-22] MEDS: THIAMINE HCL 100 MG TABLET (FP) PO SCH (21:35)
[2022-02-23] MEDS: PRENATAL VITAMINS W/ FOLIC ACID TABLET (FP) PO SCH (10:21)
[2022-02-23] MEDS: NICOTINE 7 MG/24 HOURS TOPICAL PATCH TD SCH (10:21)
[2022-02-23] MEDS: GABAPENTIN 400 MG CAPSULE PO SCH (10:21)
[2022-02-23] MEDS: LIDOCAINE HCL 5% TOP OINTMENT 50 GM TUBE TP SCH (10:22)
[2022-02-23] MEDS: DICLOFENAC SODIUM 75 MG TABLET.DR PO SCH ×2 (10:22→21:04)
[2022-02-23] MEDS: hydrOXYzine PAMOATE 25 MG CAPSULE (FP) PO PRN ×2 (10:23→21:05)
[2022-02-23] MEDS: NICOTINE 10 MG CARTRIDGE (INHALER) IH PRN ×3 (10:23→21:06)
[2022-02-23] MEDS: IBUPROFEN 400 MG TABLET (FP) PO PRN (14:07)
[2022-02-23] MEDS: SUVOREXANT 5 MG TABLET PO PRN (21:05)
[2022-02-23] MEDS: MELATONIN 5 MG TABLETS PO SCH (21:05)
[2022-02-23] MEDS: THIAMINE HCL 100 MG TABLET (FP) PO SCH (21:05)
[2022-02-24] MEDS: NICOTINE 7 MG/24 HOURS TOPICAL PATCH TD SCH (10:23)
[2022-02-24] MEDS: GABAPENTIN 400 MG CAPSULE PO SCH (10:23)
[2022-02-24] MEDS: NICOTINE 10 MG CARTRIDGE (INHALER) IH PRN ×3 (10:23→21:18)
[2022-02-24] MEDS: PRENATAL VITAMINS W/ FOLIC ACID TABLET (FP) PO SCH (10:23)
[2022-02-24] MEDS: DICLOFENAC SODIUM 75 MG TABLET.DR PO SCH ×2 (10:23→21:15)
[2022-02-24] MEDS: LIDOCAINE HCL 5% TOP OINTMENT 50 GM TUBE TP SCH (10:24)
[2022-02-24] MEDS: ARTIFICIAL TEARS (POLYVINYL ALCOHOL) OPTH DROPS OD PRN (10:25)
[2022-02-24] MEDS: hydrOXYzine PAMOATE 25 MG CAPSULE (FP) PO PRN (21:15)
[2022-02-24] MEDS: THIAMINE HCL 100 MG TABLET (FP) PO SCH (21:15)
[2022-02-24] MEDS: SUVOREXANT 5 MG TABLET PO PRN (21:16)
[2022-02-24] MEDS: IBUPROFEN 400 MG TABLET (FP) PO PRN (21:17)
[2022-02-24] MEDS: MELATONIN 5 MG TABLETS PO SCH (21:18)
[2022-02-25] MEDS: PRENATAL VITAMINS W/ FOLIC ACID TABLET (FP) PO SCH (10:32)
[2022-02-25] MEDS: ARTIFICIAL TEARS (POLYVINYL ALCOHOL) OPTH DROPS OD PRN (10:33)
[2022-02-25] MEDS: NICOTINE 10 MG CARTRIDGE (INHALER) IH PRN ×3 (10:33→23:09)
[2022-02-25] MEDS: GABAPENTIN 400 MG CAPSULE PO SCH (10:33)
[2022-02-25] MEDS: NICOTINE 7 MG/24 HOURS TOPICAL PATCH TD SCH (10:33)
[2022-02-25] MEDS: hydrOXYzine PAMOATE 25 MG CAPSULE (FP) PO PRN ×2 (10:34→21:02)
[2022-02-25] MEDS: DICLOFENAC SODIUM 75 MG TABLET.DR PO SCH ×2 (10:34→21:02)
[2022-02-25] MEDS: LIDOCAINE HCL 5% TOP OINTMENT 50 GM TUBE TP SCH (14:40)
[2022-02-25] MEDS: MELATONIN 5 MG TABLETS PO SCH (21:02)
[2022-02-25] MEDS: THIAMINE HCL 100 MG TABLET (FP) PO SCH (21:02)
[2022-02-25] MEDS ORDERED: SUVOREXANT 15 MG TABLET PO ONE (22:34)
[2022-02-26] MEDS: hydrOXYzine PAMOATE 25 MG CAPSULE (FP) PO PRN ×2 (06:50→16:30)
[2022-02-26] MEDS: NICOTINE 10 MG CARTRIDGE (INHALER) IH PRN ×4 (06:50→21:12)
[2022-02-26] MEDS: NICOTINE 7 MG/24 HOURS TOPICAL PATCH TD SCH (10:20)
[2022-02-26] MEDS: PRENATAL VITAMINS W/ FOLIC ACID TABLET (FP) PO SCH (10:20)
[2022-02-26] MEDS: GABAPENTIN 400 MG CAPSULE PO SCH (10:20)
[2022-02-26] MEDS: DICLOFENAC SODIUM 75 MG TABLET.DR PO SCH ×2 (10:22→21:11)
[2022-02-26] MEDS: LIDOCAINE HCL 5% TOP OINTMENT 50 GM TUBE TP SCH (10:22)
[2022-02-26] MEDS: MELATONIN 5 MG TABLETS PO SCH (21:11)
[2022-02-26] MEDS: THIAMINE HCL 100 MG TABLET (FP) PO SCH (21:11)
[2022-02-26] MEDS: SUVOREXANT 15 MG TABLET PO PRN (21:12)
[2022-02-27] MEDS: PRENATAL VITAMINS W/ FOLIC ACID TABLET (FP) PO SCH (10:18)
[2022-02-27] MEDS: DICLOFENAC SODIUM 75 MG TABLET.DR PO SCH ×2 (10:18→21:16)
[2022-02-27] MEDS: GABAPENTIN 400 MG CAPSULE PO SCH (10:18)
[2022-02-27] MEDS: hydrOXYzine PAMOATE 25 MG CAPSULE (FP) PO PRN ×2 (10:19→21:16)
[2022-02-27] MEDS: NICOTINE 10 MG CARTRIDGE (INHALER) IH PRN ×2 (10:19→18:02)
[2022-02-27] MEDS: NICOTINE 7 MG/24 HOURS TOPICAL PATCH TD SCH (10:30)
[2022-02-27] MEDS: LIDOCAINE HCL 5% TOP OINTMENT 50 GM TUBE TP SCH (10:31)
[2022-02-27] MEDS: SUVOREXANT 15 MG TABLET PO PRN (21:15)
[2022-02-27] MEDS: THIAMINE HCL 100 MG TABLET (FP) PO SCH (21:16)
[2022-02-27] MEDS: MELATONIN 5 MG TABLETS PO SCH (21:16)
[2022-02-28] MEDS: NICOTINE 10 MG CARTRIDGE (INHALER) IH PRN ×2 (08:17→18:50)
[2022-02-28] MEDS: NICOTINE 7 MG/24 HOURS TOPICAL PATCH TD SCH (09:59)
[2022-02-28] MEDS: DICLOFENAC SODIUM 75 MG TABLET.DR PO SCH ×2 (09:59→21:15)
[2022-02-28] MEDS: ARTIFICIAL TEARS (POLYVINYL ALCOHOL) OPTH DROPS OD PRN (09:59)
[2022-02-28] MEDS: GABAPENTIN 400 MG CAPSULE PO SCH (09:59)
[2022-02-28] MEDS: PRENATAL VITAMINS W/ FOLIC ACID TABLET (FP) PO SCH (09:59)
[2022-02-28] MEDS: hydrOXYzine PAMOATE 25 MG CAPSULE (FP) PO PRN ×2 (09:59→21:14)
[2022-02-28] MEDS: LIDOCAINE HCL 5% TOP OINTMENT 50 GM TUBE TP SCH (10:00)
[2022-02-28] MEDS: THIAMINE HCL 100 MG TABLET (FP) PO SCH (21:13)
[2022-02-28] MEDS: MELATONIN 5 MG TABLETS PO SCH (21:13)
[2022-02-28] MEDS: SUVOREXANT 15 MG TABLET PO PRN (21:14)
[2022-03-01] MEDS: DICLOFENAC SODIUM 75 MG TABLET.DR PO SCH ×2 (10:10→21:08)
[2022-03-01] MEDS: GABAPENTIN 400 MG CAPSULE PO SCH (10:10)
[2022-03-01] MEDS: PRENATAL VITAMINS W/ FOLIC ACID TABLET (FP) PO SCH (10:10)
[2022-03-01] MEDS: NICOTINE 7 MG/24 HOURS TOPICAL PATCH TD SCH (10:11)
[2022-03-01] MEDS: LIDOCAINE HCL 5% TOP OINTMENT 50 GM TUBE TP SCH (10:11)
[2022-03-01] MEDS: NICOTINE 10 MG CARTRIDGE (INHALER) IH PRN ×2 (10:12→19:12)
[2022-03-01] MEDS: hydrOXYzine PAMOATE 25 MG CAPSULE (FP) PO PRN ×2 (10:12→21:08)
[2022-03-01] MEDS: TOLNAFTATE 1% POWDER 45 GM POW TP SCH ×2 (10:12→21:09)
[2022-03-01] MEDS: THIAMINE HCL 100 MG TABLET (FP) PO SCH (21:08)
[2022-03-01] MEDS: MELATONIN 5 MG TABLETS PO SCH (21:08)
[2022-03-01] MEDS: SUVOREXANT 15 MG TABLET PO PRN (21:09)
[2022-03-02] MEDS: GABAPENTIN 400 MG CAPSULE PO SCH (10:02)
[2022-03-02] MEDS: PRENATAL VITAMINS W/ FOLIC ACID TABLET (FP) PO SCH (10:02)
[2022-03-02] MEDS: DICLOFENAC SODIUM 75 MG TABLET.DR PO SCH ×2 (10:03→21:06)
[2022-03-02] MEDS: hydrOXYzine PAMOATE 25 MG CAPSULE (FP) PO PRN ×2 (10:03→21:06)
[2022-03-02] MEDS: LIDOCAINE HCL 5% TOP OINTMENT 50 GM TUBE TP SCH (10:03)
[2022-03-02] MEDS: NICOTINE 7 MG/24 HOURS TOPICAL PATCH TD SCH (10:04)
[2022-03-02] MEDS: ARTIFICIAL TEARS (POLYVINYL ALCOHOL) OPTH DROPS OD PRN (10:04)
[2022-03-02] MEDS: TOLNAFTATE 1% POWDER 45 GM POW TP SCH ×2 (10:04→21:07)
[2022-03-02] MEDS: NICOTINE 10 MG CARTRIDGE (INHALER) IH PRN ×2 (10:04→19:31)
[2022-03-02] MEDS: THIAMINE HCL 100 MG TABLET (FP) PO SCH (21:06)
[2022-03-02] MEDS: MELATONIN 5 MG TABLETS PO SCH (21:06)
[2022-03-02] MEDS: SUVOREXANT 15 MG TABLET PO PRN (21:07)
[2022-03-03] MEDS: GABAPENTIN 400 MG CAPSULE PO SCH (10:04)
[2022-03-03] MEDS: hydrOXYzine PAMOATE 25 MG CAPSULE (FP) PO PRN ×2 (10:04→21:13)
[2022-03-03] MEDS: PRENATAL VITAMINS W/ FOLIC ACID TABLET (FP) PO SCH (10:04)
[2022-03-03] MEDS: DICLOFENAC SODIUM 75 MG TABLET.DR PO SCH ×2 (10:05→21:13)
[2022-03-03] MEDS: NICOTINE 10 MG CARTRIDGE (INHALER) IH PRN ×2 (10:05→15:58)
[2022-03-03] MEDS: NICOTINE 7 MG/24 HOURS TOPICAL PATCH TD SCH (10:05)
[2022-03-03] MEDS: LIDOCAINE HCL 5% TOP OINTMENT 50 GM TUBE TP SCH (10:05)
[2022-03-03] MEDS: TOLNAFTATE 1% POWDER 45 GM POW TP SCH ×2 (10:06→21:14)
[2022-03-03] MEDS: ARTIFICIAL TEARS (POLYVINYL ALCOHOL) OPTH DROPS OD PRN (10:06)
[2022-03-03] MEDS: MELATONIN 5 MG TABLETS PO SCH (21:13)
[2022-03-03] MEDS: SUVOREXANT 15 MG TABLET PO PRN (21:13)
[2022-03-03] MEDS: THIAMINE HCL 100 MG TABLET (FP) PO SCH (21:14)
[2022-03-04] MEDS: LIDOCAINE HCL 5% TOP OINTMENT 50 GM TUBE TP SCH (09:51)
[2022-03-04] MEDS: DICLOFENAC SODIUM 75 MG TABLET.DR PO SCH ×2 (09:51→21:09)
[2022-03-04] MEDS: GABAPENTIN 400 MG CAPSULE PO SCH (09:51)
[2022-03-04] MEDS: PRENATAL VITAMINS W/ FOLIC ACID TABLET (FP) PO SCH (09:51)
[2022-03-04] MEDS: hydrOXYzine PAMOATE 25 MG CAPSULE (FP) PO PRN ×2 (09:51→21:09)
[2022-03-04] MEDS: TOLNAFTATE 1% POWDER 45 GM POW TP SCH ×2 (09:52→21:10)
[2022-03-04] MEDS: NICOTINE 7 MG/24 HOURS TOPICAL PATCH TD SCH (09:52)
[2022-03-04] MEDS: NICOTINE 10 MG CARTRIDGE (INHALER) IH PRN ×3 (09:54→21:10)
[2022-03-04] MEDS: THIAMINE HCL 100 MG TABLET (FP) PO SCH (21:09)
[2022-03-04] MEDS: MELATONIN 5 MG TABLETS PO SCH (21:09)
[2022-03-04] MEDS ORDERED: SUVOREXANT 15 MG TABLET PO PRN (22:00)
[2022-03-05] MEDS: hydrOXYzine PAMOATE 25 MG CAPSULE (FP) PO PRN (06:26)
[2022-03-05] MEDS: NICOTINE 10 MG CARTRIDGE (INHALER) IH PRN (06:26)
[2022-03-05 06:57] VITALS: BP 128/92; PULSE 73; TEMP 97.7
[2022-03-05] MEDS: NICOTINE 7 MG/24 HOURS TOPICAL PATCH TD SCH (09:55)
[2022-03-05] MEDS: PRENATAL VITAMINS W/ FOLIC ACID TABLET (FP) PO SCH (09:55)
[2022-03-05] MEDS: GABAPENTIN 400 MG CAPSULE PO SCH (09:55)
[2022-03-05] MEDS: DICLOFENAC SODIUM 75 MG TABLET.DR PO SCH (09:56)
== END 2022-03-05 10:09 | disposition home or self-care (01) | DRG 772 ==
LOC: YASAS 13:33 → Y5N 13:35 → Y3W 02-09 15:47
PROVIDERS: ADMIT Allergy & Immunology; ATTEND Psychiatry & Neurology Pain Medicine
PROC: HZ42ZZZ Group Counseling for Substance Abuse Treatment, Cognitive-Behavioral (ICD-10-PCS; principal; 2022-02-06)
DX: F10.20 Alcohol dependence, uncomplicated (principal); F14.20 Cocaine dependence, uncomplicated; F17.210 Nicotine dependence, cigarettes, uncomplicated; F41.9 Anxiety disorder, unspecified; F32.A Depression, unspecified; G47.00 Insomnia, unspecified; B35.3 Tinea pedis; R26.89 Other abnormalities of gait and mobility; Z99.89 Dependence on other enabling machines and devices